=== PATIENT | female | born 1995 | race Caucasian/White ===

== ENCOUNTER 2017-11-11 16:07 | Emergency (ER) | payer OTHER ==
[2017-11-11] MEDS ORDERED: Lidocaine 2% VISCOUS* 15 ML UDC PO ONE (17:20)
[2017-11-11] MEDS ORDERED: Al Hydrox/Mg Hydrox/Simet LIQ* 30 ML UDC PO ONE (17:20)
[2017-11-11] MEDS ORDERED: Famotidine IV* 10 MG/ML 2 ML (20 mg) IV ONE (17:20)
[2017-11-11] MEDS ORDERED: NS 0.9% 1000 ML* 1,000 ML IV ONE (17:20)
[2017-11-11 17:45] LABS: ABS Basophils 0 10^3/ul (0-0.2); ABS Eosinophils 0 10^3/ul (0-0.6); ABS Lymphocytes 1.4 10^3/ul (1.0-4.8); ABS Monocytes 0.5 10^3/ul (0-0.8); ABS Neutrophils 5.5 10^3/ul (1.5-7.7); ABS Nucleated RBC 0 10^3/ul; Eosinophil % 0.6 % (0-6); Hematocrit 36 % (35-47); Hemoglobin 12.6 g/dl (12.0-16.0); Lymphocyte % 18.7 % (25-47); Mean Corpuscular HGB Conc 35 g/dl (31-36); Mean Corpuscular Hemoglobin 30 pg (27-31); Mean Corpuscular Volume 87 fL (80-97); Mean Platelet Volume 7 um3 (7.4-10.4); Nucleated Red Blood Cells % 0.1; Platelet Count 263 10^3/ul (150-450); Red Blood Count 4.15 10^6/ul (4.0-5.4); Red Cell Distribution Width 13 % (10.5-15); White Blood Count 7.4 10^3/ul (3.5-10.8)
[2017-11-11] MEDS ORDERED: Ketorolac INJ* 30 MG/ML 1 ML VIAL IV PUSH ONE (17:55)
[2017-11-11 18:01] LABS: EGFR Non-African American 140.9 (>60)
--- NOTE | 2017-11-11 18:38 | RAD ---
HISTORY: Abdominal pain COMPARISONS: None VIEWS: Frontal supine and upright views of the abdomen. FINDINGS: BOWEL: There is a nonspecific bowel gas pattern, with nondilated small bowel gas noted. There is a large amount of stool within the colon. CALCULI: There are no abnormal calculi. BONES AND SOFT TISSUES: There are no osseous abnormalities. OTHER FINDINGS: The lung bases are clear. There is no subphrenic gas. IMPRESSION: NONSPECIFIC BOWEL GAS PATTERN. LARGE AMOUNT OF STOOL WITHIN THE COLON.
--- NOTE | 2017-11-11 18:41 | RAD ---
HISTORY: Pelvic pain, early COMPARISONS: None TECHNIQUE: Multiple transverse and longitudinal ultrasound images were obtained of the pelvis using grayscale, color Doppler, spectral Doppler imaging and M-Mode Doppler imaging using the endovaginal transducer. FINDINGS: UTERUS: The uterus is normal in shape, size, contour, and echotexture. GESTATION: There is a single live intrauterine gestation. The crown-rump length measures 1.15 cm for a gestational age of 7 weeks, 3 days. The LEONOR is June 27, 2018. cardiac motion is detected at a rate of 139 beats per minute. Gross movement is identified. anatomy cannot be assessed secondary to early dates. The amniotic fluid is qualitatively normal. There is a small hypoechoic fluid collection consistent with a subchorionic hemorrhage along the lower uterine segment measuring 1.4 x 0.5 x 0.9 cm CUL-DE-SAC: There is no free fluid within the cul-de-sac. RIGHT OVARY: The right ovary measures 4.4 x 2.1 x 3.3 cm. Normal arterial and venous waveforms are identifiable within the ovary on spectral Doppler imaging. LEFT OVARY: The left ovary measures 3.6 x 2.6 x 2.5 cm. There is a 1.6 cm simple left ovarian cyst. Normal arterial and venous waveforms are identifiable within the ovary on spectral Doppler imaging. BLADDER: The bladder is not well visualized. IMPRESSION: 1. SINGLE LIVE INTRAUTERINE GESTATION AT 7 WEEKS, 3 DAYS BY CROWN-RUMP LENGTH. 2. SMALL SUBCHORIONIC HEMORRHAGE.
[2017-11-11 18:47] VITALS: BP 115/65
--- NOTE | 2017-11-12 18:40 | ED ---
Philip Contreras Gabriel, scribed for Wally Carney MD on 11/11/17 at 1714 . Abdominal Pain/Female - HPI Summary HPI Summary: This patient is a 21 year old F presenting to [facility] with a chief complaint of suprapubic ABD pain that began the 28 of October. The patient rates the pain 8/10 in severity. Patient reports nausea. Patient denies vomiting, diarrhea, and constipation.. Pt saw Eyal and dx with GERD and the medication but it did not help. LNMP October 14 she is not regular. Pt is sexually active and is not on contraceptives. - History of Current Complaint Chief Complaint: EDAbdPain Stated Complaint: ABD PAIN Time Seen by Provider: 11/11/17 17:08 Hx Obtained From: Patient Onset/Duration: Lasting Weeks, Still Present Timing: Constant Severity Initially: Severe Severity Currently: Severe Pain Intensity: 8 Pain Scale Used: 0-10 Numeric Location: Suprapubic Radiates: No Alleviating Factor(s): Nothing Associated Signs and Symptoms: Positive: Nausea. Negative: Vomiting, Diarrhea Allergies/Adverse Reactions: Allergies Allergy/AdvReac Type Severity Reaction Status Date / Time gluten Allergy Rash Verified 11/11/17 17:22 PMH/Surg Hx/FS Hx/Imm Hx Endocrine/Hematology History: Reports: Other Endocrine/Hematological Disorders - celiacs disease Denies: Hx Anticoagulant Therapy, Hx Blood Disorders, Hx Bone Marrow Disease Cardiovascular History: Denies: Hx Auto Implanted Cardiovert Defib, Hx Cardiac Arrest Respiratory History: Denies: Hx Asthma, Hx Bronchopulmonary Dysplasia GI History: Denies: Hx Cirrhosis, Hx Crohn's Disease Psychiatric History: Denies: Hx Anxiety, Hx Attention Deficit Hyperactivity Disorder Infectious Disease History: No Infectious Disease History: Denies: Traveled Outside the [place] in Last 30 Days - Family History Known Family History: Negative: Respiratory Disease, Seizure Disorder - Social History Occupation: Student Lives: Dormitory/Roommates Alcohol Use: Occasionally Hx Substance Use: No Substance Use Type: Reports: None Hx Tobacco Use: No Smoking Status (MU): Never Smoked Tobacco Review of Systems Negative: Fever Gastrointestinal: Negative - constipation Positive: Abdominal Pain, Nausea. Negative: Vomiting, Diarrhea All Other Systems Reviewed And Are Negative: Yes Physical Exam - Summary Physical Exam Summary: VITAL SIGNS: Reviewed. GENERAL: Patient is a well-developed and nourished female who is lying comfortable in the stretcher. Patient is not in any acute respiratory distress. HEAD AND FACE: Normocephalic and atraumatic. EYES: PERRLA, EOMI x 2, No injected conjunctiva. EARS: Hearing grossly intact. Ear canals and tympanic membranes are WNL. MOUTH: Oropharynx within normal limits. NECK: Supple, trachea is midline, no adenopathy, no JVD. CHEST: Symmetric, no tenderness at palpation LUNGS: Clear to auscultation bilaterally. No wheezing or crackles. CVS: RRR, S1 and S2 present, no murmurs or gallops appreciated. ABDOMEN: Soft, non-tender. No signs of distention. Positive bowel sounds. No rebound no guarding, and no masses palpated. No abdominal bruit or pulsations. EXTREMITIES: FROM in all major joints, no edema, no cyanosis or clubbing. NEURO: Alert and oriented x 3. No acute neurological deficits. Speech is normal. SKIN: Dry and warm Triage Information Reviewed: Yes Vital Signs On Initial Exam: Initial Vitals Temp Pulse Resp BP Pulse Ox 97.9 F 73 16 136/60 100 11/11/17 16:16 11/11/17 16:16 11/11/17 16:16 11/11/17 16:16 11/11/17 16:16 Vital Signs Reviewed: Yes Diagnostics - Vital Signs Vital Signs Temp Pulse Resp BP Pulse Ox 11/11/17 16:16 97.9 F 73 16 136/60 100 - Laboratory Lab Results: Lab Results 11/11/17 11/11/17 11/11/17 Range/Units 17:34 17:34 17:34 WBC 7.4 (3.5-10.8) 10^3/ul RBC 4.15 (4.0-5.4) 10^6/ul Hgb 12.6 (12.0-16.0) g/dl Hct 36 (35-47) % MCV 87 (80-97) fL MCH 30 (27-31) pg MCHC 35 (31-36) g/dl RDW 13 (10.5-15) % Plt Count 263 (150-450) 10^3/ul MPV 7 L (7.4-10.4) um3 Neut % (Auto) 74.1 (38-83) % Lymph % (Auto) 18.7 L (25-47) % [place] % (Auto) 6.1 (0-7) % Eos % (Auto) 0.6 (0-6) % Baso % (Auto) 0.5 (0-2) % Absolute Neuts (auto) 5.5 (1.5-7.7) 10^3/ul Absolute Lymphs (auto) 1.4 (1.0-4.8) 10^3/ul Absolute Monos (auto) 0.5 (0-0.8) 10^3/ul Absolute Eos (auto) 0 (0-0.6) 10^3/ul Absolute Basos (auto) 0 (0-0.2) 10^3/ul Absolute Nucleated RBC 0 10^3/ul Nucleated RBC % 0.1 Sodium 133 (133-145) mmol/L Potassium 3.6 (3.5-5.0) mmol/L Chloride 103 (101-111) mmol/L Carbon Dioxide 24 (22-32) mmol/L Anion Gap 6 (2-11) mmol/L BUN 7 (6-24) mg/dL Creatinine 0.55 (0.51-0.95) mg/dL Est GFR ( Amer) 181.2 (>60) Est GFR (Non-Af Amer) 140.9 (>60) BUN/Creatinine Ratio 12.7 (8-20) Glucose 84 (70-100) mg/dL Lactic Acid (0.5-2.0) mmol/L Calcium 9.4 (8.6-10.3) mg/dL Magnesium 1.8 L (1.9-2.7) mg/dL Total Bilirubin 0.80 (0.2-1.0) mg/dL AST 17 (13-39) U/L ALT 17 (7-52) U/L Alkaline Phosphatase 25 L (34-104) U/L Total Creatine Kinase 56 (10-223) U/L C-Reactive Protein < 1.00 (< 5.00) mg/L B-Natriuretic Peptide 24 ( - 100) pg/mL Total Protein 7.0 (6.4-8.9) g/dL Albumin 4.6 (3.2-5.2) g/dL Globulin 2.4 (2-4) g/dL Albumin/Globulin Ratio 1.9 (1-3) Amylase 42 (29-103) U/L Lipase 25 (11.0-82.0) U/L Beta HCG, Quant Pending 11/11/17 Range/Units 17:34 WBC (3.5-10.8) 10^3/ul RBC (4.0-5.4) 10^6/ul Hgb (12.0-16.0) g/dl Hct (35-47) % MCV (80-97) fL MCH (27-31) pg MCHC (31-36) g/dl RDW (10.5-15) % Plt Count (150-450) 10^3/ul MPV (7.4-10.4) um3 Neut % (Auto) (38-83) % Lymph % (Auto) (25-47) % [place] % (Auto) (0-7) % Eos % (Auto) (0-6) % Baso % (Auto) (0-2) % Absolute Neuts (auto) (1.5-7.7) 10^3/ul Absolute Lymphs (auto) (1.0-4.8) 10^3/ul Absolute Monos (auto) (0-0.8) 10^3/ul Absolute Eos (auto) (0-0.6) 10^3/ul Absolute Basos (auto) (0-0.2) 10^3/ul Absolute Nucleated RBC 10^3/ul Nucleated RBC % Sodium (133-145) mmol/L Potassium (3.5-5.0) mmol/L Chloride (101-111) mmol/L Carbon Dioxide (22-32) mmol/L Anion Gap (2-11) mmol/L BUN (6-24) mg/dL Creatinine (0.51-0.95) mg/dL Est GFR ( Amer) (>60) Est GFR (Non-Af Amer) (>60) BUN/Creatinine Ratio (8-20) Glucose (70-100) mg/dL Lactic Acid 0.5 (0.5-2.0) mmol/L Calcium (8.6-10.3) mg/dL Magnesium (1.9-2.7) mg/dL Total Bilirubin (0.2-1.0) mg/dL AST (13-39) U/L ALT (7-52) U/L Alkaline Phosphatase (34-104) U/L Total Creatine Kinase (10-223) U/L C-Reactive Protein (< 5.00) mg/L B-Natriuretic Peptide ( - 100) pg/mL Total Protein (6.4-8.9) g/dL Albumin (3.2-5.2) g/dL Globulin (2-4) g/dL Albumin/Globulin Ratio (1-3) Amylase (29-103) U/L Lipase (11.0-82.0) U/L Beta HCG, Quant Result Diagrams: 11/11/17 17:34 11/11/17 17:34 Lab Statement: Any lab studies that have been ordered have been reviewed, and results considered in the medical decision making process. - Radiology ABD xray Radiology Interpretation Completed By: Radiologist - NONSPECIFIC BOWEL GAS PATTERN. LARGE AMOUNT OF STOOL WITHIN THE COLON ED physician has reviewed this radiology report. - EKG 17:32 Cardiac Rate: NL EKG Rhythm: Sinus Rhythm - at 62 BPM EKG Interpretation: no ST elevations. Normal axis. - Additional Comments Diagnostic Additional Comments: US reveals, per radiologist, 1. SINGLE LIVE INTRAUTERINE GESTATION AT 7 WEEKS, 3 DAYS BY CROWN-RUMP LENGTH. 2. SMALL SUBCHORIONIC HEMORRHAGE. ED physician has reviewed this radiology report. Abdominal Pain Fem Course/Dx - Course Course Of Treatment: In the ED course an IV access was obtained. Patient was placed in a night monitor. Patient was started with IV fluids. She was given pepcid and GI cocktail for the epigastric pain and Toradol for lower abdominal pain. Labs w/o a significant abnormality. Pelvic U/S showed the patient is 7 weeks . Patient reports she wants to terminate the thus she will be discharged home [facility]. She is hemodynamically stable and alert and oriented x3. - Diagnoses Provider Diagnoses: Discharge - Discharge Plan Condition: Stable Disposition: HOME Patient Education Materials: (ED) [facility], [Z.CONVERSION PROVIDER TYPE] - If Needed Additional Instructions: RETURN TO EMERGENCY DEPARTMENT FOR ANY NEW OR WORSENING SYMPTOMS The documentation as recorded by the Philip salgado Gabriel accurately reflects the service I personally performed and the decisions made by , Wally Carney MD.
== END 2017-11-11 18:46 | disposition home or self-care (01) ==
LOC: ED 16:07
DX: O26.891 Other specified pregnancy related conditions, first trimester (principal); R10.30 Lower abdominal pain, unspecified; Z3A.01 Less than 8 weeks gestation of pregnancy
CPT/HCPCS: 36415; 74019; 76801; 80053; 82150; 82550; 83605; 83690; 83735; 83880; 84702; 85025; 86140; 87040; 93005; 96374; 96375; 99282; A9270-GY

== ENCOUNTER 2018-02-19 20:45 | Emergency (ER) | payer OTHER ==
--- NOTE | 2018-02-19 21:42 | RAD ---
Indication: Persistent headache at forehead and around the eyes. Comparison: No relevant prior exams available on the [facility] PACS for comparison. Technique: Noncontrast CT paranasal sinuses with multiplanar reformation. Report: Clear paranasal sinuses. Patent infundibula of the anterior ostiomeatal units. Clear nasal cavity. Normal variant pneumatization of the LEFT middle nasal turbinate. Negative for significant septal deviation. Unremarkable nasopharyngeal mucosal space contours. Unremarkable orbital contents. IMPRESSION: Negative for paranasal sinus disease.
[2018-02-19] MEDS ORDERED: diPHENhydraMINE IV* 50 MG/ML 1 ml VIAL (BENADRYL) IV ONE (22:01)
[2018-02-19] MEDS ORDERED: Metoclopramide IV* 5 MG/ML 2 ML VIAL IV SLOW PU ONE (22:01)
[2018-02-19] MEDS ORDERED: NS 0.9% 1000 ML* 1,000 ML IV ONE (22:02)
[2018-02-19] MEDS ORDERED: Ketorolac INJ* 30 MG/ML 1 ML VIAL IV PUSH ONE (22:02)
[2018-02-19 22:34] LABS: ABS Basophils 0 10^3/ul (0-0.2); ABS Eosinophils 0 10^3/ul (0-0.6); ABS Lymphocytes 1.2 10^3/ul (1.0-4.8); ABS Nucleated RBC 0 10^3/ul; Eosinophil % 0 % (0-6); Hematocrit 39 % (35-47); Hemoglobin 13.2 g/dl (12.0-16.0); Lymphocyte % 10.9 % (25-47); Mean Corpuscular HGB Conc 34 g/dl (31-36); Mean Corpuscular Hemoglobin 30 pg (27-31); Mean Corpuscular Volume 88 fL (80-97); Mean Platelet Volume 7.2 um3 (7.4-10.4); Nucleated Red Blood Cells % 0.2; Platelet Count 253 10^3/ul (150-450); Red Blood Count 4.38 10^6/ul (4.00-5.40); Red Cell Distribution Width 13 % (10.5-15); White Blood Count 11.3 10^3/ul (3.5-10.8)
[2018-02-19 22:57] LABS: EGFR Non-African American 113.1 (>60)
[2018-02-19] MEDS ORDERED: Morphine VIAL* 4 MG/ML VIAL (1 ml vial) IV ONE (23:27)
--- NOTE | 2018-02-19 23:27 | ED ---
Headache - HPI Summary HPI Summary: 22-year-old female presents to headache for past 4 days. She denies any history of headache. She states the headache is in the front of her head. States it feels like it is in her sinus and behind her eyes. She denies any pain with eye movement. No swelling to her eyes. No recent dental infection. No sinus congestion. States she was seen in urgent care couple days ago and was told it was allergies and to take Zyrtec twice a day. She has been doing and it has not been helping. States she's had a toradol shot 2 days ago and had Toradol shot today at [facility]. She denies a sore throat. No ear pain. No family history of migraines or personal history of migraines. No dizziness. She admits to photophobia. No neck stiffness. No fevers. No nausea vomiting. No chest pain shortness breath. Never had this before. - History Of Current Complaint Chief Complaint: EDHeadache Stated Complaint: HEADACHE Time Seen by Provider: 02/19/18 21:48 - Allergies/Home Medications Allergies/Adverse Reactions: Allergies Allergy/AdvReac Type Severity Reaction Status Date / Time cefuroxime [From Ceftin] Allergy Difficulty Verified 02/19/18 20:51 Breathing gluten Allergy Rash Verified 11/11/17 17:22 Home Medications: Home Medications Cetirizine* [ZyrTEC 10 MG TAB*] 20 mg PO DAILY 02/19/18 [History Confirmed 02/19] Dextroamphetamine/Amphetamine [Adderall 5 mg] 1 tab PO DAILY PRN 02/19/18 [ History Confirmed 02/19/18] Dextroamphetamine/Amphetamine [Adderall Xr 15 mg Capsule] 15 mg PO DAILY [History Confirmed 02/19/18] Metaxalone [Metaxalone] 800 mg PO TID 02/19/18 [History Confirmed 02/19/18] predniSONE TAB* [Deltasone 20 MG TAB*] 20 mg PO DAILY 02/19/18 [History Confirmed 02/19/18] PMH/Surg Hx/FS Hx/Imm Hx Endocrine/Hematology History: Reports: Other Endocrine/Hematological Disorders - celiacs disease Denies: Hx Anticoagulant Therapy, Hx Blood Disorders, Hx Bone Marrow Disease Cardiovascular History: Denies: Hx Auto Implanted Cardiovert Defib, Hx Cardiac Arrest Respiratory History: Denies: Hx Asthma, Hx Bronchopulmonary Dysplasia GI History: Denies: Hx Cirrhosis, Hx Crohn's Disease Psychiatric History: Denies: Hx Anxiety, Hx Attention Deficit Hyperactivity Disorder Infectious Disease History: No Infectious Disease History: Denies: Traveled Outside the [place] in Last 30 Days - Family History Known Family History: Negative: Respiratory Disease, Seizure Disorder - Social History Alcohol Use: Occasionally Hx Substance Use: No Substance Use Type: Reports: None Hx Tobacco Use: No Smoking Status (MU): Never Smoked Tobacco Review of Systems Negative: Fever Positive: Photophobia Negative: Chest Pain Negative: Shortness Of Breath Positive: Headache All Other Systems Reviewed And Are Negative: Yes Physical Exam Triage Information Reviewed: Yes Vital Signs On Initial Exam: Initial Vitals Temp Pulse Resp BP Pulse Ox 97.9 F 65 17 129/72 99 02/19/18 20:46 02/19/18 20:46 02/19/18 20:46 02/19/18 20:46 02/19/18 20:46 Vital Signs Reviewed: Yes Appearance: Positive: Well-Appearing Skin: Positive: Warm, Dry Head/Face: Positive: Normal Head/Face Inspection Eyes: Positive: Normal, EOMI, AKIN, Conjunctiva Clear ENT: Positive: Normal ENT inspection, Pharynx normal, TMs normal Neck: Positive: Supple, Nontender, No Lymphadenopathy. Negative: Nuchal Rigidity Respiratory/Lung Sounds: Positive: Clear to Auscultation, Breath Sounds Present Cardiovascular: Positive: Normal, RRR Abdomen Description: Positive: Nontender, Soft Bowel Sounds: Positive: Present Musculoskeletal: Positive: Normal Neurological: Positive: Sensory/Motor Intact, Alert, Oriented to Person Place, Time, CN Intact II-III Psychiatric: Positive: Normal Diagnostics - Vital Signs Vital Signs Temp Pulse Resp BP Pulse Ox 02/19/18 20:46 97.9 F 65 17 129/72 99 - Laboratory Lab Results: Lab Results 02/19/18 02/19/18 Range/Units 22:28 22:28 WBC 11.3 H (3.5-10.8) 10^3/ul RBC 4.38 (4.00-5.40) 10^6/ul Hgb 13.2 (12.0-16.0) g/dl Hct 39 (35-47) % MCV 88 (80-97) fL MCH 30 (27-31) pg MCHC 34 (31-36) g/dl RDW 13 (10.5-15) % Plt Count 253 (150-450) 10^3/ul MPV 7.2 L (7.4-10.4) um3 Neut % (Auto) 80.1 (38-83) % Lymph % (Auto) 10.9 L (25-47) % [place] % (Auto) 8.9 H (0-7) % Eos % (Auto) 0 (0-6) % Baso % (Auto) 0.1 (0-2) % Absolute Neuts (auto) 9.0 H (1.5-7.7) 10^3/ul Absolute Lymphs (auto) 1.2 (1.0-4.8) 10^3/ul Absolute Monos (auto) 1.0 H (0-0.8) 10^3/ul Absolute Eos (auto) 0 (0-0.6) 10^3/ul Absolute Basos (auto) 0 (0-0.2) 10^3/ul Absolute Nucleated RBC 0 10^3/ul Nucleated RBC % 0.2 Sodium 138 (135-145) mmol/L Potassium 4.0 (3.5-5.0) mmol/L Chloride 104 (101-111) mmol/L Carbon Dioxide 26 (22-32) mmol/L Anion Gap 8 (2-11) mmol/L BUN 11 (6-24) mg/dL Creatinine 0.66 (0.51-0.95) mg/dL Est GFR ( Amer) 145.4 (>60) Est GFR (Non-Af Amer) 113.1 (>60) BUN/Creatinine Ratio 16.7 (8-20) Glucose 106 H (70-100) mg/dL Calcium 9.9 (8.6-10.3) mg/dL Total Bilirubin 0.60 (0.2-1.0) mg/dL AST 24 (13-39) U/L ALT 27 (7-52) U/L Alkaline Phosphatase 36 (34-104) U/L Total Protein 7.3 (6.4-8.9) g/dL Albumin 4.3 (3.2-5.2) g/dL Globulin 3.0 (2-4) g/dL Albumin/Globulin Ratio 1.4 (1-3) Beta HCG, Quant < 0.60 mIU/mL Result Diagrams: 02/19/18 22:28 02/19/18 22:28 Lab Statement: Any lab studies that have been ordered have been reviewed, and results considered in the medical decision making process. - CT sinus CT Interpretation: No Acute Changes CT Interpretation Completed By: Radiologist Re-Evaluation - Re-Evaluation First Eval Re-Evaluation Time: 23:27 Change: Improved Comment: pain is now 5-6 Second Eval Re-Evaluation Time: 00:16 Change: Improved Comment: headache is 2/10 Headache Course/Dx - Course Course Of Treatment: 22-year-old female presents to headache for past 4 days. She denies any history of headache. She states the headache is in the front of her head. States it feels like it is in her sinus and behind her eyes. She denies any pain with eye movement. No swelling to her eyes. No recent dental infection. No sinus congestion. States she was seen in urgent care couple days ago and was told it was allergies and to take Zyrtec twice a day. She has been doing and it has not been helping. States she's had a toradol shot 2 days ago and had Toradol shot today at [facility]. She denies a sore throat. No ear pain. No family history of migraines or personal history of migraines. No dizziness. She admits to photophobia. No neck stiffness. No fevers. No nausea vomiting. No chest pain shortness breath. Never had this before. On exam has some on exam normal neuro exam. Nontender sinuses. No sinus congestion noted. CT sinuses normal. Labs wbc a little elevated. Gave Toradol Benadryl and Reglan feeling better. gave some morphine as headache not completely resolved and feeling better. will have follow up with primary or neurology. patient understand and agrees with plan. - Diagnoses Differential Diagnosis/HQI/PQRI: Migraine, Tension Headache, Viral Syndrome Provider Diagnoses: Headache Discharge - Sign-Out/Discharge Documenting (check all that apply): Discharge/Admit/Transfer - Discharge Plan Condition: Good Disposition: HOME Patient Education Materials: Acute Headache (ED) Referrals: Rocio Eugene MD [Medical Doctor] - Collette Rivera MD [Primary Care Provider] - Additional Instructions: Take Tylenol or ibuprofen for pain every 6 hours Follow up with neurology Return to ED if develop fever, neck stiffness, or any new or worsening symptoms - Billing Disposition and Condition Condition: GOOD Disposition: Home
[2018-02-20 00:38] VITALS: BP 123/68
== END 2018-02-20 00:37 | disposition home or self-care (01) ==
LOC: ED 20:45
DX: R51 Headache (principal); Z91.018 Allergy to other foods; H53.149 Visual discomfort, unspecified
CPT/HCPCS: 36415; 70486; 80053; 84702; 85025; 96374; 96375; 99282; J1200; J1885; J2270; J2765

== ENCOUNTER 2018-02-20 09:42 | Emergency (ER) | payer OTHER ==
[2018-02-20] MEDS ORDERED: HYDROmorphone INJ* 2 MG/ML CARPUJECT SYRINGE IV SLOW PU ONE (10:13)
[2018-02-20] MEDS ORDERED: NS 0.9% 1000 ML* 1,000 ML IV ONE (10:13)
[2018-02-20] MEDS ORDERED: PROCHLORPERAZINE INJ 5 MG/ML 2 ML VIAL IV PRN (10:13)
[2018-02-20 10:39] LABS: ABS Basophils 0 10^3/ul (0-0.2); ABS Eosinophils 0 10^3/ul (0-0.6); ABS Lymphocytes 0.5 10^3/ul (1.0-4.8); ABS Monocytes 0.6 10^3/ul (0-0.8); ABS Neutrophils 7.3 10^3/ul (1.5-7.7); ABS Nucleated RBC 0 10^3/ul; Eosinophil % 0.1 % (0-6); Hematocrit 33 % (35-47); Hemoglobin 11.5 g/dl (12.0-16.0); Lymphocyte % 6.2 % (25-47); Mean Corpuscular HGB Conc 35 g/dl (31-36); Mean Corpuscular Hemoglobin 31 pg (27-31); Mean Corpuscular Volume 88 fL (80-97); Mean Platelet Volume 7.1 um3 (7.4-10.4); Nucleated Red Blood Cells % 0; Platelet Count 209 10^3/ul (150-450); Red Blood Count 3.75 10^6/ul (4.00-5.40); Red Cell Distribution Width 13 % (10.5-15); White Blood Count 8.4 10^3/ul (3.5-10.8)
[2018-02-20] MEDS ORDERED: Lidocaine 2% EPI 1:200000 MPF*10-20 ML VIAL ONE (11:40)
[2018-02-20] MEDS ORDERED: Lidocaine 1%* 5 ML VIAL ONE (11:40)
[2018-02-20] MEDS ORDERED: LORazepam INJ* 2 MG/ML 1 ML VIAL IV ONE (14:52)
[2018-02-20] MEDS ORDERED: Ketorolac INJ* 30 MG/ML 1 ML VIAL IV PUSH ONE (15:48)
[2018-02-20 17:48] VITALS: BP 133/69
--- NOTE | 2018-02-20 18:47 | ED ---
Harsha Contreras Angela, scribed for Rafa Neely MD on 02/20/18 at 1004 . Headache - HPI Summary HPI Summary: This pt is a 22 y/o female presenting to [facility] c/o headache x5 days. Pt reports her headache began 5 days ago on the right temporal area. She states she took 4 ibuprofens that day and woke up a couple of hours feeling better. She notes that 3 days ago her headache was worse, on bilateral temporal areas, and went to Urgent Care where she was given Toradol and prednisone. Pt was also seen in the ED last night and was treated for migraines with morphine. She states she had some relief but when she got home she was in a lot of pain. Pt also had a sinus CT last night that resulted negative. Pt went to [facility] today and was advised to come to the ED for an MRI. Her headache is located at the bilateral temporal areas and behind her eyes. She states her headache is worse with sitting up from lying position or bending down. Currently she rates her headache 10/10 in severity. Additionally, pt notes fever, neck pain with neck flexion, neck stiffness, and low back pain (began 4 days ago). Denies runny nose , nasal congestion, fullness under eyes, sore throat, ear ache. No PMHx of migraines. - History Of Current Complaint Chief Complaint: EDHeadache Stated Complaint: HEAD PAIN/FEVER Time Seen by Provider: 02/20/18 09:59 Hx Obtained From: Patient Onset/Duration: Started days ago, Still Present Currently Pain Is: Current Pain Scale(0-10)= - 10, Severe Timing: Days Character: Pressure Location of Headache: Temporal - bilateral Aggravating Factor: Position Change Allevating Factors: Nothing Associated Signs And Symptoms: Fever, Neck Pain, Neck Stiffness, Other (Noted In Comments) - POS: low back pain. NEG: runny nose, nasal congestion, sore throat, ear ache. - Allergies/Home Medications Allergies/Adverse Reactions: Allergies Allergy/AdvReac Type Severity Reaction Status Date / Time cefuroxime [From Ceftin] Allergy Difficulty Verified 02/20/18 09:43 Breathing gluten Allergy Rash Verified 02/20/18 09:43 Home Medications: Home Medications Amphetamine MIXED SALTS TAB* [Adderall TAB*] 5 mg PO DAILY PRN 02/20/18 [ History Confirmed 02/20/18] Amphetamine/Dextroamph ER(NF) [Adderal XR (NF)] 15 mg PO DAILY 02/20/18 [ History Confirmed 02/20/18] Metaxalone TAB* [Skelaxin TAB*] 800 mg PO TID 02/20/18 [History Confirmed ] PMH/Surg Hx/FS Hx/Imm Hx Endocrine/Hematology History: Reports: Other Endocrine/Hematological Disorders - celiacs disease Denies: Hx Anticoagulant Therapy, Hx Blood Disorders, Hx Bone Marrow Disease Cardiovascular History: Denies: Hx Auto Implanted Cardiovert Defib, Hx Cardiac Arrest Respiratory History: Denies: Hx Asthma, Hx Bronchopulmonary Dysplasia GI History: Denies: Hx Cirrhosis, Hx Crohn's Disease Neurological History: Denies: Hx Migraine Psychiatric History: Denies: Hx Anxiety, Hx Attention Deficit Hyperactivity Disorder Infectious Disease History: No Infectious Disease History: Denies: Traveled Outside the [place] in Last 30 Days - Family History Known Family History: Negative: Respiratory Disease, Seizure Disorder Family History: No FHx of migraines. - Social History Alcohol Use: Occasionally Hx Substance Use: No Substance Use Type: Reports: None Hx Tobacco Use: No Smoking Status (MU): Never Smoked Tobacco Review of Systems Positive: Fever Negative: Sore Throat, Ear Ache, Nasal Discharge Musculoskeletal: Other - neck pain, neck stiffness, lower back pain Positive: Headache All Other Systems Reviewed And Are Negative: Yes Physical Exam - Summary Physical Exam Summary: Appearance: The patient is well-nourished in no acute distress. Skin: The skin is warm and dry and skin color reflects adequate perfusion. HEENT: The head is normocephalic and atraumatic. The pupils are equal and reactive. The conjunctivae are clear and without drainage. Nares are patent and without drainage. Mouth reveals moist mucous membranes and the throat is without erythema and exudate. The external ears are intact. The ear canals are patent and without drainage. The tympanic membranes are intact. Neck: the neck is supple with full range of motion and full flexion. Tenderness with flexion of neck. There are no carotid bruits. There is no neck vein distension. She does not have any meningeal signs. Respiratory: Chest is non-tender. Lungs are clear to auscultation and breath sounds are symmetrical and equal. Cardiovascular: Heart is regular rate and rhythm. There is no murmur or rub auscultated. There is no peripheral edema and pulses are symmetrical and equal. Abdomen: The abdomen is soft and non-tender. There are normal bowel sounds heard in all four quadrants and there is no organomegaly palpated. Musculoskeletal: There is no back tenderness noted. Extremities are non-tender with full range of motion. There is good capillary refill. There is no peripheral edema or calf tenderness elicited. Neurological: Patient is alert and oriented to person, place and time. The patient has symmetrical motor strength in all four extremities. Cranial nerves are grossly intact. Deep tendon reflexes are symmetrical and equal in all four extremities. Psychiatric: The patient has an appropriate affect and does not exhibit any anxiety or depression. Triage Information Reviewed: Yes Vital Signs On Initial Exam: Initial Vitals Temp Pulse Resp BP Pulse Ox 100.6 F 87 18 126/69 99 02/20/18 09:43 02/20/18 09:43 02/20/18 09:43 02/20/18 09:43 02/20/18 09:43 Vital Signs Reviewed: Yes Procedures - Lumbar Puncture 11:49 Position: Sitting Aseptic Technique: Lidocaine Anesthesia Used: 2.0% Lido Spinal Needle Used: 22 Gauge Lumbar Puncture Note: Consent for LP procedure was obtained and signed by the pt. CSF opening pressure is 34 cm of H2O. First pass, 4 CC of clear CSF obtained. Pt tolerated the procedure well. Diagnostics - Vital Signs Vital Signs Temp Pulse Resp BP Pulse Ox 02/20/18 09:43 100.6 F 87 18 126/69 99 - Laboratory Lab Results: Lab Results 02/20/18 02/20/18 02/20/18 Range/Units 10:25 10:25 10:25 WBC 8.4 (3.5-10.8) 10^3/ul RBC 3.75 L (4.00-5.40) 10^6/ul Hgb 11.5 L (12.0-16.0) g/dl Hct 33 L (35-47) % MCV 88 (80-97) fL MCH 31 (27-31) pg MCHC 35 (31-36) g/dl RDW 13 (10.5-15) % Plt Count 209 (150-450) 10^3/ul MPV 7.1 L (7.4-10.4) um3 Neut % (Auto) 86.9 H (38-83) % Lymph % (Auto) 6.2 L (25-47) % [place] % (Auto) 6.6 (0-7) % Eos % (Auto) 0.1 (0-6) % Baso % (Auto) 0.2 (0-2) % Absolute Neuts (auto) 7.3 (1.5-7.7) 10^3/ul Absolute Lymphs (auto) 0.5 L (1.0-4.8) 10^3/ul Absolute Monos (auto) 0.6 (0-0.8) 10^3/ul Absolute Eos (auto) 0 (0-0.6) 10^3/ul Absolute Basos (auto) 0 (0-0.2) 10^3/ul Absolute Nucleated RBC 0 10^3/ul Nucleated RBC % 0 C-Reactive Protein 56.86 H (<8.01) mg/L Fluid Source Fluid Volume mL Fluid Color Fluid Appearance Fluid WBC /mcL Fluid RBC /mcL Fluid Tot Cell Count Fluid Neutrophils % Fluid Lymphocytes % Fluid Monocytes % Fluid Cell Count Rvw By CSF Cell Count Tube # CSF Glucose (40-70) mg/dL CSF Total Protein (15-45) mg/dL HIV 1&2 Antibody Nonreactive (Nonreactive) 02/20/18 02/20/18 Range/Units 12:00 12:00 WBC (3.5-10.8) 10^3/ul RBC (4.00-5.40) 10^6/ul Hgb (12.0-16.0) g/dl Hct (35-47) % MCV (80-97) fL MCH (27-31) pg MCHC (31-36) g/dl RDW (10.5-15) % Plt Count (150-450) 10^3/ul MPV (7.4-10.4) um3 Neut % (Auto) (38-83) % Lymph % (Auto) (25-47) % [place] % (Auto) (0-7) % Eos % (Auto) (0-6) % Baso % (Auto) (0-2) % Absolute Neuts (auto) (1.5-7.7) 10^3/ul Absolute Lymphs (auto) (1.0-4.8) 10^3/ul Absolute Monos (auto) (0-0.8) 10^3/ul Absolute Eos (auto) (0-0.6) 10^3/ul Absolute Basos (auto) (0-0.2) 10^3/ul Absolute Nucleated RBC 10^3/ul Nucleated RBC % C-Reactive Protein (<8.01) mg/L Fluid Source Cerebral spinal Fluid Volume 1.5 mL Fluid Color Colorless Fluid Appearance Clear Fluid WBC 6 /mcL Fluid RBC 1 /mcL Fluid Tot Cell Count 100 Fluid Neutrophils 81 % Fluid Lymphocytes 13 % Fluid Monocytes 6 % Fluid Cell Count Rvw By CSF Cell Count Tube # 4 CSF Glucose 60 (40-70) mg/dL CSF Total Protein 30 (15-45) mg/dL HIV 1&2 Antibody (Nonreactive) Result Diagrams: 02/20/18 10:25 Lab Statement: Any lab studies that have been ordered have been reviewed, and results considered in the medical decision making process. Re-Evaluation - Re-Evaluation First Eval Re-Evaluation Time: 11:25 Comment: Obtained consent from pt to perform lumbar puncture. Second Eval Re-Evaluation Time: 11:49 Comment: Lumbar puncture procedure started. Third Eval Re-Evaluation Time: 12:03 Comment: Lumbar puncture completed, obtained 4 CC of clear CSF. Headache Course/Dx - Course Course Of Treatment: Ms. Quinones presented with 5 days of a headache and a fever. She has seen I believe at least 4 physicians in the last 5 days. This is the first time she's had a fever. Her neck felt stiff to her and tight but she was able to flex fully. She did have paracervical tenderness but no meningeal sign; Kernig's and Brudzinski's signs were negative. She had a mild leukocytosis yesterday indecision was made to perform a lumbar puncture. She agreed to the procedure after explaining the risks and benefits and signed the consent form. The procedure was easy to perform and the results returned with a normal protein, a normal glucose, 6 white blood cells and 1 red blood cell. She had gotten some relief with a shot of Dilaudid prior to the procedure but was still complaining of significant headache. She was then given a dose of Ativan as a muscle relaxer with the assumption that she has a viral infection complicated by a muscle tension headache. A viral meningitis is still in the differential although much less likely. She got significant relief with this and I will discharge her with symptomatic treatment and follow up with [facility]. - Diagnoses Provider Diagnoses: Viral syndrome, Tension headache - Physician Notifications Discussed Care Of Patient With: Rocio Eugene Time Discussed With Above Provider: 14:39 Instructed by Provider To: Other - I discussed pt care with Dr. Eugene, neurologist. Discharge - Sign-Out/Discharge Documenting (check all that apply): Discharge/Admit/Transfer - Discharge - Discharge Plan Condition: Stable Disposition: HOME Patient Education Materials: Tension Headache (ED), Viral Syndrome (ED) Referrals: [facility] [Outside] Additional Instructions: Recommend to take ibuprofen for the pain. Please follow up with your primary care provider in 2-3 days. RETURN TO THE ED FOR ANY WORSENING SYMPTOMS. - Billing Disposition and Condition Condition: STABLE Disposition: Home The documentation as recorded by the Harsha salgado Angela accurately reflects the service I personally performed and the decisions made by me, Rafa Neely MD.
== END 2018-02-20 17:46 | disposition home or self-care (01) ==
LOC: ED 09:42
DX: B34.9 Viral infection, unspecified (principal); G44.209 Tension-type headache, unspecified, not intractable; R51 Headache; R50.9 Fever, unspecified; M54.2 Cervicalgia
CPT/HCPCS: 36415; 62270; 82945; 84157; 85025; 86140; 86703; 87040; 87070; 87205; 89051; 96374; 96375; 99284; J0780; J1170; J1885; J2060

== ENCOUNTER 2018-02-22 13:10 | Inpatient (IN) | payer OTHER ==
[2018-02-22] MEDS ORDERED: NS 0.9% 1000 ML* 1,000 ML IV ONE (14:25)
[2018-02-22] MEDS ORDERED: diPHENhydraMINE IV* 50 MG/ML 1 ml VIAL (BENADRYL) IV ONE (14:28)
[2018-02-22] MEDS ORDERED: PROCHLORPERAZINE INJ 5 MG/ML 2 ML VIAL IV ONE (14:28)
[2018-02-22] MEDS ORDERED: Ketorolac INJ* 30 MG/ML 1 ML VIAL IV PUSH ONE (14:28)
[2018-02-22] MEDS ORDERED: methylPREDNISolone SOD 40 MG* 1 ML VIAL IV ONE (15:00)
[2018-02-22] MEDS ORDERED: Magnesium Sulfate 2 GM IV* 2 GM/50 ML BAG IVPB ONE (15:00)
[2018-02-22 15:10] LABS: ABS Basophils 0 10^3/ul (0-0.2); ABS Eosinophils 0.1 10^3/ul (0-0.6); ABS Lymphocytes 1.6 10^3/ul (1.0-4.8); ABS Monocytes 0.6 10^3/ul (0-0.8); ABS Neutrophils 4.1 10^3/ul (1.5-7.7); ABS Nucleated RBC 0 10^3/ul; Eosinophil % 2.1 % (0-6); Hematocrit 35 % (35-47); Hemoglobin 11.9 g/dl (12.0-16.0); Lymphocyte % 25.4 % (25-47); Mean Corpuscular HGB Conc 35 g/dl (31-36); Mean Corpuscular Hemoglobin 30 pg (27-31); Mean Corpuscular Volume 88 fL (80-97); Mean Platelet Volume 7.1 um3 (7.4-10.4); Nucleated Red Blood Cells % 0; Platelet Count 256 10^3/ul (150-450); Red Blood Count 3.93 10^6/ul (4.00-5.40); Red Cell Distribution Width 13 % (10.5-15); White Blood Count 6.4 10^3/ul (3.5-10.8)
[2018-02-22 15:34] LABS: EGFR Non-African American 123.8 (>60)
[2018-02-22] MEDS ORDERED: methylPREDNISolone SOD SUCC* 500 MG in NS 0.9% 100 ML* 100 ML IVPB ONE (16:30)
--- NOTE | 2018-02-22 18:02 | ED ---
Headache - HPI Summary HPI Summary: Patient is a 22-year-old female who presents emergency department for ongoing headache times roughly one week. Patient has been seen twice at [facility] and this is her third visit to the emergency department for this headache. Patient has received numerous medications and blood work throughout her visit. When patient was here 2 days ago she had a low-grade fever and had a lumbar puncture done at that time which was relatively unremarkable. Patient states when she was discharged 2 days ago her headache was improved but started again today and was worse. Headache does not increase with sitting or standing. She also states that today she had nausea and vomiting which is new for her. Today patient denies fever, chills, sore throat, sinus congestion, cough, abd. pain, diarrhea, urinary symptoms, numbness, tingling, weakness, vision changes. Patient states pain is located in between her eyes and her posterior head extending to neck. She has no past medical history. Symptoms are moderate in severity. Pain is exacerbated by lights and noise. - History Of Current Complaint Chief Complaint: EDHeadache Stated Complaint: HEADACHE/NAUSEA/STIFF NECK Time Seen by Provider: 02/22/18 14:03 Hx Obtained From: Patient - Allergies/Home Medications Allergies/Adverse Reactions: Allergies Allergy/AdvReac Type Severity Reaction Status Date / Time cefuroxime [From Ceftin] Allergy Difficulty Verified 02/20/18 09:43 Breathing gluten Allergy Rash Verified 02/20/18 09:43 PMH/Surg Hx/FS Hx/Imm Hx Previously Healthy: Yes Endocrine/Hematology History: Reports: Other Endocrine/Hematological Disorders - celiacs disease Denies: Hx Anticoagulant Therapy, Hx Blood Disorders, Hx Bone Marrow Disease Cardiovascular History: Denies: Hx Auto Implanted Cardiovert Defib, Hx Cardiac Arrest Respiratory History: Denies: Hx Asthma, Hx Bronchopulmonary Dysplasia GI History: Denies: Hx Cirrhosis, Hx Crohn's Disease Neurological History: Denies: Hx Migraine Psychiatric History: Denies: Hx Anxiety, Hx Attention Deficit Hyperactivity Disorder Infectious Disease History: No Infectious Disease History: Denies: Traveled Outside the [place] in Last 30 Days - Family History Known Family History: Negative: Respiratory Disease, Seizure Disorder Family History: No FHx of migraines. - Social History Occupation: Student Lives: Alone Alcohol Use: Occasionally Hx Substance Use: No Substance Use Type: Reports: None Hx Tobacco Use: No Smoking Status (MU): Never Smoked Tobacco Review of Systems Constitutional: Negative Negative: Fever, Chills Eyes: Negative ENT: Negative Cardiovascular: Negative Respiratory: Negative Positive: Vomiting, Nausea. Negative: Abdominal Pain, Diarrhea Genitourinary: Negative Musculoskeletal: Negative Skin: Negative Positive: Headache. Negative: Weakness, Paresthesia, Numbness, Syncope All Other Systems Reviewed And Are Negative: Yes Physical Exam Triage Information Reviewed: Yes Vital Signs On Initial Exam: Initial Vitals Temp Pulse Resp BP Pulse Ox 97.6 F 70 16 123/88 98 02/22/18 13:12 02/22/18 13:12 02/22/18 13:12 02/22/18 13:12 02/22/18 13:12 Vital Signs Reviewed: Yes Appearance: Positive: Pain Distress - Pt. lying in bed, eyes closed. Appears uncomfortable but nontoxic. Skin: Positive: Warm, Dry Head/Face: Positive: Normal Head/Face Inspection Eyes: Positive: Normal ENT: Positive: Pharynx normal, TMs normal Neck: Positive: Supple, Nontender, No Lymphadenopathy, Other: - Mild pain in palpation over the right lateral neck. No midline tenderness. No no current rigidity. Respiratory/Lung Sounds: Positive: Clear to Auscultation, Breath Sounds Present Cardiovascular: Positive: Normal, RRR Abdomen Description: Positive: Nontender, No Organomegaly Musculoskeletal: Positive: Normal Neurological: Positive: Normal, CN Intact II-III, Normal Gait, Facial Symmetry, Speech Normal. Negative: Disoriented, Slurred Speech, Ataxic Gait Psychiatric: Positive: Affect/Mood Appropriate Diagnostics - Vital Signs Vital Signs Temp Pulse Resp BP Pulse Ox 02/22/18 17:00 61 99 02/22/18 16:43 71 128/61 98 02/22/18 16:13 90 121/69 98 02/22/18 16:00 59 99 02/22/18 15:43 66 124/76 99 02/22/18 15:13 61 125/70 99 02/22/18 13:12 97.6 F 70 16 123/88 98 - Laboratory Lab Results: Lab Results 02/22/18 02/22/18 Range/Units 14:59 14:59 WBC 6.4 (3.5-10.8) 10^3/ul RBC 3.93 L (4.00-5.40) 10^6/ul Hgb 11.9 L (12.0-16.0) g/dl Hct 35 (35-47) % MCV 88 (80-97) fL MCH 30 (27-31) pg MCHC 35 (31-36) g/dl RDW 13 (10.5-15) % Plt Count 256 (150-450) 10^3/ul MPV 7.1 L (7.4-10.4) um3 Neut % (Auto) 63.1 (38-83) % Lymph % (Auto) 25.4 (25-47) % [place] % (Auto) 9.0 H (0-7) % Eos % (Auto) 2.1 (0-6) % Baso % (Auto) 0.4 (0-2) % Absolute Neuts (auto) 4.1 (1.5-7.7) 10^3/ul Absolute Lymphs (auto) 1.6 (1.0-4.8) 10^3/ul Absolute Monos (auto) 0.6 (0-0.8) 10^3/ul Absolute Eos (auto) 0.1 (0-0.6) 10^3/ul Absolute Basos (auto) 0 (0-0.2) 10^3/ul Absolute Nucleated RBC 0 10^3/ul Nucleated RBC % 0 Sodium 139 (135-145) mmol/L Potassium 4.0 (3.5-5.0) mmol/L Chloride 103 (101-111) mmol/L Carbon Dioxide 27 (22-32) mmol/L Anion Gap 9 (2-11) mmol/L BUN 6 (6-24) mg/dL Creatinine 0.61 (0.51-0.95) mg/dL Est GFR ( Amer) 149.8 (>60) Est GFR (Non-Af Amer) 123.8 (>60) BUN/Creatinine Ratio 9.8 (8-20) Glucose 90 (70-100) mg/dL Calcium 9.2 (8.6-10.3) mg/dL Total Bilirubin 0.50 (0.2-1.0) mg/dL AST 17 (13-39) U/L ALT 27 (7-52) U/L Alkaline Phosphatase 30 L (34-104) U/L Total Protein 6.7 (6.4-8.9) g/dL Albumin 3.8 (3.2-5.2) g/dL Globulin 2.9 (2-4) g/dL Albumin/Globulin Ratio 1.3 (1-3) Result Diagrams: 02/22/18 14:59 02/22/18 14:59 Lab Statement: Any lab studies that have been ordered have been reviewed, and results considered in the medical decision making process. Headache Course/Dx - Course Course Of Treatment: Patient presenting to the emergency department for ongoing headache. She is afebrile with stable vital signs. She has no neurological deficits on exam. Basic labs were ordered. Patient was started on IV fluids, Benadryl, Compazine and Toradol. I spoke with neurologist, Dr. Eugene, who was consulted on the patient several days ago. She recommends giving patient magnesium and 500 mg Solu-Medrol. She recommends if patient's headache is not significantly improved she should be admitted for MRI and further evaluation. Patient reexamined around 1730 she states h/a has improved from a 10/10 to a 6/ 10. Pt.'s parents are no present who just flew in from [place]. I spoke with Dr. Eugene again and she recommends admitting pt to the hospitalist service and she will see her in the morning. Plan was discussed with pt. and family. Labs are unremarkable. 180: I spoke with hospitalist, Dr. Amaya, and she has accepted pt. to her service. - Diagnoses Provider Diagnoses: Intractable headache Discharge - Sign-Out/Discharge Documenting (check all that apply): Discharge/Admit/Transfer - Discharge Plan Condition: Stable Disposition: ADMITTED TO [facility] Referrals: Collette Rivera MD [Primary Care Provider] - - Billing Disposition and Condition Condition: STABLE Disposition: Admitted to [facility]
--- NOTE | 2018-02-22 18:37 | RAD ---
INDICATION: Headaches. COMPARISON: There are no prior studies available for comparison. TECHNIQUE: Contiguous axial sections of the brain were obtained from the skull base to the vertex without contrast. FINDINGS: The ventricles, cisterns and sulci are within normal limits. No significant focal abnormality or mass effect is seen. There is no evidence for hemorrhage. No significant focal osseous abnormality is seen. The visualized portion of the paranasal sinuses and mastoid air cells appear clear. IMPRESSION: NO EVIDENCE FOR ACUTE INTRACRANIAL ABNORMALITY.
[2018-02-22] MEDS ORDERED: Acetaminophen TAB* 325 MG PO PRN (19:05)
[2018-02-22] MEDS ORDERED: Ondansetron INJ* 2 MG/ML VIAL IV PRN (19:05)
[2018-02-22] MEDS ORDERED: Al Hydrox/Mg Hydrox/Simet LIQ* 30 ML UDC PO PRN (19:05)
[2018-02-22] MEDS ORDERED: Amphetamine MIXED SALT TAB* 10 MG TAB PO PRN (19:20)
[2018-02-22] MEDS: oxyCODONE/Acetamin 5/325 MG* TAB PO PRN ×2 (19:33→23:50)
[2018-02-22] MEDS: Metaxalone TAB* 800 MG PO SCH (21:50)
[2018-02-22] MEDS: Ketorolac INJ* 30 MG/ML 1 ML VIAL IV PUSH PRN (22:00)
[2018-02-22] MEDS: NS 0.9% 1000 ML* 1,000 ML IV SCH (22:10)
--- NOTE | 2018-02-23 04:02 | HP ---
CC: Dr. Eugene * ADMISSION HISTORY AND PHYSICAL: DATE OF ADMISSION: 02/22/18 PATIENT OF: Dr. Livia Herman, attending hospitalist.* (DICTATED BY SHAYY CHUA) NEUROLOGICAL CONSULT: Dr. Eugene. CHIEF COMPLAINT: Intractable headache. HISTORY OF PRESENT ILLNESS: Poppy is a 22-year-old female, who carries past medical history significant for celiac disease, who reports 1-week history of worsening headache. The patient presented to the emergency room for the third time today in the past 7 days for evaluation of intractable headaches. She described her headaches as being severe at times, very unpredictable, started very orbital in character and then migrated to frontal headaches. She was evaluated 3 times in the emergency room, starting on the of that month where she had a sinus CT scan that revealed no paranasal sinuses disease. She was discharged home on muscle relaxant and then returned the following day with the same character of headache. She was given pain medication and IV fluid and again discharged home and she again returned 2 days later this morning with complaints of worsening headache. She reports associated photophobia, nausea, and vomiting, but denies any history of migraine headaches or an aura. Her headaches are now mostly frontal. However, she still has difficulty focusing with her eyes and also notes being able to sleep in the past couple of months. She denies alcohol use, similar complaints in the past, or any hormone replacement therapy. She was on contraceptive pills for a period of time a few years ago due to problems with her menstruation, but she has not had any oral contraceptive pills lately. It is to be mentioned that she was diagnosed with mononucleosis back in November and December of this year. She also was found to be in November of this year and she electively decided to terminate her . She denies any chills, however, she notes low-grade fever at home. She denies any recent sick contact or traveling. She had a brain CT earlier today that revealed no evidence of any acute abnormalities. Her laboratory workup was done on the , , and today that revealed normal white count, normal hemoglobin, and hematocrit. She also had chemical panel that was essentially within normal limits with the exception of C-reactive protein that was elevated with a value of 56. The patient had HIV checked that was nonreactive. She had lumbar puncture performed that revealed increased lymphocytes as well as evidence of probable mild viral meningitis. Given her intractable headaches with unclear etiology at this point, we were asked to see the patient for further evaluation and to discuss observation overnight as well as neurological consults. PAST MEDICAL HISTORY: As mentioned above, significant for celiac disease for which she has been careful about her food consumption. She was diagnosed with mono back in November and December of this year, however, her symptoms are completely resolved. She denies any history of diabetes, heart disease, asthma, or kidney disease. PAST SURGICAL HISTORY: Significant for wisdom teeth extraction a few years ago as well as most recently elective terminated in November of this year. MEDICATIONS: Her medication at home include: 1. Amphetamine 5 mg p.o. daily. 2. Adderall XR 15 mg p.o. daily. 3. Zyrtec 20 mg p.o. daily. 4. Skelaxin 800 mg p.o. t.i.d. ALLERGIES: Include GLUTEN and CEFUROXIME. FAMILY HISTORY: Noncontributory. 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 She is a nonsmoker, who consumes alcohol occasionally. Her parents live in [place] and she is planning to return back home after graduation. REVIEW OF SYSTEMS: See HPI. Otherwise, 14-point review of systems were reviewed and otherwise negative. PHYSICAL EXAMINATION GENERAL: She is a healthy-appearing young female, appears comfortable, lying comfortably in a dimmed light room and in no acute distress or discomfort. VITAL SIGNS: Revealed blood pressure of 143/89, pulse of 80, temperature of 98.8, O2 sat of 100% on room air. HEENT: Head is normocephalic, atraumatic. Sclerae anicteric. There is bilateral scleral injection noted. There is a small area of subconjunctival hematoma on the right side towards the medial aspect. Pupils are equal and reactive to light and accommodation. EOMs were intact. There is no temporal tenderness bilaterally. NECK: Supple. Trachea midline. No cervical adenopathy or thyromegaly noted. LUNGS: Clear to auscultation bilaterally. HEART: Regular rate and rhythm. Normal S1 and S2 without rubs, murmurs, or gallops. ABDOMEN: Soft, nontender, and nondistended. No hernias, masses, or hepatosplenomegaly. BACK: Normal curvature. No CVA tenderness. BREASTS: Deferred at this time. EXTREMITIES: Without cyanosis, clubbing, or edema. RECTAL: Deferred at this time. NEUROLOGIC: Grossly intact. DIAGNOSTIC STUDIES/LAB DATA: CBC with white count of 6000, hemoglobin 11.9, hematocrit of 35, and platelets of 256. Chemistry with sodium of 139, potassium is 4.0, chloride 103, CO2 27, BUN of 6, and creatinine of 0.6. Her glucose is 90, magnesium is 1.8 from prior visit. LFTs within normal limits and C-reactive protein done 2 days ago with value of 56. She has nonreactive HIV 1 and 2 antibody and her LP findings raised possibility of viral meningitis. Accessory Diagnostic Data: Sinus CT done 3 days ago was negative for any paranasal sinus disease. Brain CT done today was also negative for any acute finding. IMPRESSION: A 22-year-old female with past medical history significant for only celiac disease, who presented to the emergency room in three separate occasions within the last week with complaints of intractable headache with no history of migraine or trauma. ASSESSMENT AND PLAN: 1. Intractable headache. The patient will be admitted for observation and control of her headaches and nausea. Neurological consultation was requested with Dr. Eugene and her recommendations were taken including getting an MRI tomorrow as well as MRV with contrast to rule out any possibility of sinus thrombosis. The patient as mentioned above has a history of oral contraceptive pill use, however, that was a few years ago. She is a nonsmoker and she does not have any other risk factors except with her recent elective termination that was back in November of this year. She appears to be clinically stable at this point. I suspect this is likely related to a new onset of migraine headaches. We will follow her up accordingly and await more input from the neurology team. 2. Celiac disease. We will consider her dietary needs in that regard. 3. DVT prophylaxis. The patient is a low risk and we will encourage early ambulation. 4. Code status. She is a full code. TIME SPENT: I spent approximately 60 minutes admitting this patient with 50% of the time taking history and performing physical exam. I discussed the findings with Dr. Herman, who agreed to management plan. SHAYY CHUA [id number]/[facility] #: [id number] CURT
[2018-02-23] MEDS: oxyCODONE/Acetamin 5/325 MG* TAB PO PRN ×5 (06:12→23:40)
[2018-02-23] MEDS: NS 0.9% 1000 ML* 1,000 ML IV SCH (06:13)
[2018-02-23 07:13] LABS: EGFR Non-African American 145.6 (>60)
[2018-02-23 07:16] LABS: Hematocrit 36 % (35-47); Hemoglobin 12.8 g/dl (12.0-16.0); Mean Corpuscular HGB Conc 35 g/dl (31-36); Mean Corpuscular Hemoglobin 31 pg (27-31); Mean Corpuscular Volume 87 fL (80-97); Mean Platelet Volume 7.1 um3 (7.4-10.4); Platelet Count 312 10^3/ul (150-450); Red Blood Count 4.19 10^6/ul (4.00-5.40); Red Cell Distribution Width 13 % (10.5-15); White Blood Count 8.6 10^3/ul (3.5-10.8)
[2018-02-23 07:59] LABS: ABS Basophils 0 10^3/ul (0-0.2); ABS Eosinophils 0 10^3/ul (0-0.6); ABS Lymphocytes 0.9 10^3/ul (1.0-4.8); ABS Monocytes 0.1 10^3/ul (0-0.8); ABS Neutrophils 7.4 10^3/ul (1.5-7.7); ABS Nucleated RBC 0 10^3/ul; Eosinophil % 0 % (0-6); Lymphocyte % 10.7 % (25-47); Nucleated Red Blood Cells % 0.1
[2018-02-23] MEDS: Metaxalone TAB* 800 MG PO SCH ×3 (09:20→20:57)
[2018-02-23] MEDS: Cetirizine* 10 MG TAB PO SCH (09:21)
[2018-02-23] MEDS: Ketorolac INJ* 30 MG/ML 1 ML VIAL IV PUSH PRN ×3 (09:22→23:10)
[2018-02-23] MEDS ORDERED: Gadoteridol* (CONTRAST) 279.3 MG/ML 10 ML IV ONE (11:34)
--- NOTE | 2018-02-23 12:43 | RAD ---
HISTORY: new intractable LEI, R eye swelling COMPARISONS: Head CT dated February 22, 2018 TECHNIQUE: The following sequences were obtained of the head: Sagittal T1-weighted images, axial T2-weighted images, axial FLAIR images, axial proton density images, axial T1-weighted images. Additionally, axial diffusion-weighted images were obtained with calculated apparent diffusion coefficients. Thin section coronal and axial T1 and T2 in phase and water phase images were obtained through the orbits. Additionally, axial T1-weighted images of the head, with thin section axial and coronal T1-wieghted water phase images through the orbits, were obtained after contrast enhancement with a gadolinium-based contrast agent, FINDINGS: HEMORRHAGE/INFARCT: There is no hemorrhage or acute infarct. MASSES/SHIFT: There is no mass or shift. EXTRA-AXIAL SPACES/MENINGES: There is mild diffuse dural thickening and enhancement. SULCI AND VENTRICLES: The sulci and ventricles are normal in size and position for the patient's stated age. CEREBRUM: There are no focal parenchymal abnormalities. BRAINSTEM: There are no focal parenchymal abnormalities. CEREBELLUM: There are no focal parenchymal abnormalities. The cerebellar tonsils are normal in size and position. SELLA: The pituitary gland is mildly prominent but is considered within normal limits for age and sex. PINEAL: The pineal region is clear. CP ANGLE/TEMPORAL BONES: The labyrinthine structures are grossly normal. VESSELS: There is loss of the flow-void within the left transverse sinus. DIFFUSION ABNORMALITIES: There are no diffusion abnormalities. PARANASAL SINUSES/MASTOIDS: The paranasal sinuses are clear. ORBITS: The globes are round. The optic nerves are symmetric in caliber and signal intensity. The extraocular muscles are normal in shape, size, and signal intensity, with normal tendinous insertions. There is no post-septal or intraconal mass or inflammatory change. The superior ophthalmic veins are normal and symmetric in size. The lacrimal apparati are normal. BONES AND SOFT TISSUE: No bone or soft tissue abnormalities are noted. OTHER: None IMPRESSION: 1. THE OPTIC NERVES ARE SYMMETRIC IN CALIBER AND SIGNAL INTENSITY WITHOUT ABNORMAL ENHANCEMENT. 2. THERE IS MILD DIFFUSE MENINGEAL ENHANCEMENT AND THICKENING WHICH CAN BE SEEN IN ASSOCIATION WITH INTRACRANIAL HYPOTENSION, INCLUDING THE SEQUELA OF LUMBAR PUNCTURE. 3. LOSS OF THE FLOW-VOID OF THE LEFT TRANSVERSE SINUS SUGGESTIVE OF VENOUS SINUS THROMBOSIS..
--- NOTE | 2018-02-23 12:45 | RAD ---
HISTORY: Headaches COMPARISONS: None TECHNIQUE: Multiple 3-D phase contrast MR venography was performed, with multiple 3-D maximum intensity projection reconstructions. FINDINGS: VENOUS SINUSES: There is decreased flow related enhancement within the left transverse sinus suggestive of venous sinus thrombosis. There is reconstitution at the level of the transverse-sigmoid junction. DEEP VEINS: The deep veins are patent. The internal cerebral veins are dominant over the basal veins of Sreekanth. OTHER FINDINGS: None IMPRESSION: FINDINGS SUGGESTIVE OF LEFT TRANSVERSE VENOUS SINUS THROMBOSIS.
[2018-02-23] MEDS ORDERED: Enoxaparin(*) 80 MG/0.8 ML SYR SUBCUT ONE (13:30)
--- NOTE | 2018-02-23 13:32 | PN ---
Subjective Date of Service: 02/23/18 Interval History: Headache improved, but still needs analgesics. No more nausea. Appetite OK. No new c/o. Objective Active Medications: Acetaminophen (Tylenol Tab*) 650 mg PO Q4H PRN PRN Reason: FEVER/PAIN Al Hydrox/Mg Hydrox/Simethicone (Maalox Plus*) 30 ml PO Q6H PRN PRN Reason: INDIGESTION Amphetamine/Dextroamphetamine (Adderall Tab*) 5 mg PO DAILY PRN PRN Reason: ADHD Cetirizine HCl (Zyrtec*) 20 mg PO DAILY [facility]; Protocol Last Admin: 02/23/18 09:21 Dose: 20 mg Enoxaparin Sodium (Lovenox(*)) 70 mg SUBCUT ONCE ONE Stop: 02/23/18 13:31 Enoxaparin Sodium (Lovenox(*)) 70 mg SUBCUT Q12H [facility] Ketorolac Tromethamine (Toradol Inj*) 30 mg IV PUSH Q6H PRN PRN Reason: PAIN Last Admin: 02/23/18 09:22 Dose: 30 mg Metaxalone (Skelaxin Tab*) 800 mg PO TID TANVIR Last Admin: 02/23/18 09:20 Dose: 800 mg Ondansetron HCl (Zofran Inj*) 4 mg IV Q4H PRN PRN Reason: NAUSEA/VOMITING Oxycodone/Acetaminophen (Percocet 5/325 Tab*) 1 tab PO Q4H PRN PRN Reason: Pain Last Admin: 02/23/18 11:00 Dose: 1 tab Vital Signs - 8 hr 02/23/18 02/23/18 02/23/18 06:12 07:22 08:12 Temperature 98.3 F Pulse Rate 63 Respiratory 16 15 18 Rate Blood Pressure 119/58 (mmHg) O2 Sat by Pulse 99 Oximetry 02/23/18 02/23/18 09:20 11:00 Temperature Pulse Rate Respiratory 18 18 Rate Blood Pressure (mmHg) O2 Sat by Pulse Oximetry Oxygen Devices in Use Now: None Appearance: Alert, sitting up in bed. In good spirits. Looks comfortable. Extremities: No Edema, No Clubbing, Cyanosis, - Skin: No Rash or Ulcers, No Nodules or Sclerosis, - Neurological: Alert and Oriented x 3, NL Sensation Result Diagrams: 02/23/18 06:47 02/23/18 06:47 Additional Lab and Data: Lab Results 02/22/18 02/22/18 Range/Units 14:59 14:59 WBC 6.4 (3.5-10.8) 10^3/ul RBC 3.93 L (4.00-5.40) 10^6/ul Hgb 11.9 L (12.0-16.0) g/dl Hct 35 (35-47) % MCV 88 (80-97) fL MCH 30 (27-31) pg MCHC 35 (31-36) g/dl RDW 13 (10.5-15) % Plt Count 256 (150-450) 10^3/ul MPV 7.1 L (7.4-10.4) um3 Neut % (Auto) 63.1 (38-83) % Lymph % (Auto) 25.4 (25-47) % [place] % (Auto) 9.0 H (0-7) % Eos % (Auto) 2.1 (0-6) % Baso % (Auto) 0.4 (0-2) % Absolute Neuts (auto) 4.1 (1.5-7.7) 10^3/ul Absolute Lymphs (auto) 1.6 (1.0-4.8) 10^3/ul Absolute Monos (auto) 0.6 (0-0.8) 10^3/ul Absolute Eos (auto) 0.1 (0-0.6) 10^3/ul Absolute Basos (auto) 0 (0-0.2) 10^3/ul Absolute Nucleated RBC 0 10^3/ul Nucleated RBC % 0 Sodium 139 (135-145) mmol/L Potassium 4.0 (3.5-5.0) mmol/L Chloride 103 (101-111) mmol/L Carbon Dioxide 27 (22-32) mmol/L Anion Gap 9 (2-11) mmol/L BUN 6 (6-24) mg/dL Creatinine 0.61 (0.51-0.95) mg/dL Est GFR ( Amer) 149.8 (>60) Est GFR (Non-Af Amer) 123.8 (>60) BUN/Creatinine Ratio 9.8 (8-20) Glucose 90 (70-100) mg/dL Calcium 9.2 (8.6-10.3) mg/dL Total Bilirubin 0.50 (0.2-1.0) mg/dL AST 17 (13-39) U/L ALT 27 (7-52) U/L Alkaline Phosphatase 30 L (34-104) U/L Total Protein 6.7 (6.4-8.9) g/dL Albumin 3.8 (3.2-5.2) g/dL Globulin 2.9 (2-4) g/dL Albumin/Globulin Ratio 1.3 (1-3) Assess/Plan/Problems-Billing Assessment: - Patient Problems (1) Cerebral venous sinus thrombosis Current Visit: Yes Status: Acute Code(s): G08 - INTRACRANIAL AND INTRASPINAL PHLEBITIS AND THROMBOPHLEBITIS SNOMED Code(s): 626367053 Comment: Start enoxaparin. Discussed with Dr. Eugene. (2) Adult celiac disease Current Visit: Yes Status: Acute Code(s): K90.0 - CELIAC DISEASE SNOMED Code(s): 11266694 Comment: Treated by diet. (3) Psychiatric diagnosis Current Visit: Yes Status: Acute Code(s): F99 - MENTAL DISORDER, NOT OTHERWISE SPECIFIED SNOMED Code(s): 79456738 Comment: Continue Adderall.
--- NOTE | 2018-02-23 17:19 | CONS ---
CONSULTATION REPORT: DATE OF CONSULT: 02/23/18 REASON FOR CONSULT: New onset intractable headache in the setting of mildly abnormal CSF. HISTORY OF PRESENT ILLNESS: Poppy Quinones is a 22[facility] who for the last 8 days has had headaches which have been intermittently severe and have varied in location; sometimes frontal, sometimes more posterior, radiating down into her neck. These have been accompanied by photophobia as well as some phonophobia and get worse with activity. Over the last day or two , she has had nausea and in the ER yesterday vomited 3 times while in the waiting room. She reports the initial onset of this headache on the of this month and was seen initially at [facility] where she was given Toradol with improvement in her headache and it was thought that this was related to allergies and so it was recommended that she take an allergy medication. She then returned for further evaluation to our ER on the where she had a CT of her sinuses and again was treated with pain medications and antiemetics and was discharged to home. Of note, she was also prescribed prednisone a 5-day course on her discharge from the urgent care over the weekend. She then returned on Monday the with continued headache and actually been noted to have a low grade fever to 100.6. She underwent a lumbar puncture which showed normal protein and glucose but they were 6 white blood cells and the pathologist who reviewed those cells indicated that there was an acute inflammatory component. Her headache decreased with IV medications in the emergency department again and she felt well enough to go home. She states that on Monday, her headache was not gone but was manageable with alternating Tylenol and Ibuprofen, but when she woke on , yesterday, the headache had again increased and so she returned to the emergency department. With treatment with Toradol, diphenhydramine, magnesium and 500 mg of Solu-Medrol as well as Compazine, she has had intermittent relief of her headache but it has returned and at the time of my evaluation this morning, was approximately a 5/10 and located frontally. She also notes that in the last day , she has developed a cough productive of some yellow sputum which is new for her. She has had some neck stiffness which is also new. She denies any sick contacts and denies any systemic illness just prior to this headache beginning, though she was diagnosed with mono and was sick essentially all of December into mid January. Most recently she had received Toradol at 2200 last evening, Skelaxin at 2150 and Percocet at 0612 this morning prior to my evaluation. I believe that just prior to my evaluation, she had also received another dose of IV Toradol. She denies any focal symptoms such as vision changes, speech changes, numbness, tingling, weakness in her extremities, balance difficulties. She does note occasional "clear dots" in her vision but this had preceded the headache. She denies any significant history of headaches in her somewhat recent medical history and of significance is that she had an early first trimester termination in November of this year and then subsequently came down with EBV infection. Neurology consultation was requested secondary to her repeated intractable headache in the setting of the mildly abnormal CSF. The patient also noted that when she was here on Monday her right eye was swollen and she says nearly swollen shut with some redness surrounding the eye. She has had some pain with eye movements but not any worse in the right and the left eye. She has had no vision changes in that eye. She felt perhaps it was due to the prednisone that she was taking. PAST MEDICAL HISTORY: 1. ADHD, on Adderall but she has not used this in 3 weeks. 2. Celiac disease, which she reports was diagnosed through a genetic test as well as elimination of gluten significantly improving her symptoms of early satiety. 3. Recent early first trimester termination. HOME MEDICATIONS: 1. Vitamin C. 2. Probiotic. 3. Multivitamin. 4. Adderall 15 mg daily and 5 mg p.r.n. but she has not used this in 3 weeks. 5. She has also recently been prescribed Zyrtec and metaxalone. ALLERGIES: GLUTEN causes diarrhea and rash, CEFUROXIME causes difficulty breathing. FAMILY HISTORY: Mother with a history of migraine headaches induced by alcohol use, grandparents had colon cancer and it sounds like the other grandparent of traumatic intracranial hemorrhage on anticoagulation. SOCIAL HISTORY: She denies tobacco use. She drinks socially a couple of times a week with her friends. She denies any illicit drug use. 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 She is from [place] and her parents are currently visiting from [place] secondary to her illness. REVIEW OF SYSTEMS: She denies any recent chest pain, skin rashes, joint swelling, known tick bites, breathing difficulties, otherwise as per the HPI. PHYSICAL EXAM: Vital Signs: Temperature 97.7, blood pre with a sure 111/54, heart rate 86, oxygen saturation 98% on room air. As mentioned, she had a fever to 100.6 noted in the emergency department on 02/20. On general exam, she is a pleasant young woman in no acute distress. Her affect is normal. Her heart is in a regular rate and rhythm with 2/6 systolic ejection murmur. Lungs are clear to auscultation. She has no rashes noted. There is no lower extremity edema. She has mild erythema on the upper lid on her right eye but no clear swelling. On neurologic exam, she is fully awake, alert and oriented. Speech is clear without dysarthria or aphasia. Pupils are equal, round, and reactive from 2 to 1.5 mm bilaterally in a bright room. Versions are full without nystagmus and she reports slight discomfort with eye movements. Leonard are full to confrontation. Facial sensation and musculature is full and symmetric. Hearing is intact to finger rub. Palate elevates symmetrically and the tongue is midline. On motor examination, she has normal bulk and tone in the upper and lower extremities with full strength proximally and distally and no pronator drift. Sensation is intact to light touch in the upper and lower extremities. Reflexes are 2 to 3+ in the upper extremities and knees, 2+ at the ankles with downgoing toes. [id number] and [id number] are intact without ataxia. Romberg is negative. She is able to walk on her heels and toes. Her gait is narrow based and stable. DIAGNOSTIC STUDIES/LAB DATA: Her recent CBC shows a normal white blood cell count, normal hematocrit and platelet count. On 02/19, her white blood cell count was 11.4, but has been normal since then. Her sed rate this morning is 32. Her chemistry panel shows a normal BMP, CRP of 39.37, which is down from 56.86 on 02/20/18. Her liver functions are normal. As mentioned her CSF profile on 02/20/18 showed 6 white blood cells, 1 rbc, glucose was 60, total protein of 30. Gram Stain was negative. Her HIV is nonreactive. She had a noncontrast brain CT performed yesterday which showed no intracranial abnormalities. IMPRESSION: Poppy Quinones is a 22-year-old woman presenting with recurrent headaches with migrainous qualities in the setting of mild fever and leukocytosis within the past week and a mildly abnormal CSF pleocytosis. Most likely this is a mild viral meningitis. She also has some mild elevations of systemic inflammatory markers. I will add on Lyme serology if this has not yet been done. We have ordered MRI scan of the brain as well as MRV secondary to her recent termination which can produce a mild hypocoagulable state. Given the swelling of her eye several days ago, I also requested thin cuts through the orbits and we will do the MRI with contrast to focus on that. We will continue focussing on her pain control with Toradol antiemetics as needed as well as Percocet. We will need to keep her inhouse until her pain control is at a level where she feels like she would be able to manage at home and we need to make sure that the results of the above reference studies are unremarkable as well. Thank you for this consultation. [id number]/[facility] #: [id number] CURT
[2018-02-23] MEDS: Enoxaparin(*) 80 MG/0.8 ML SYR SUBCUT SCH (23:13)
[2018-02-24] MEDS: oxyCODONE/Acetamin 5/325 MG* TAB PO PRN ×2 (03:45→08:12)
[2018-02-24] MEDS: Metaxalone TAB* 800 MG PO SCH ×3 (08:12→20:56)
[2018-02-24] MEDS: Cetirizine* 10 MG TAB PO SCH (08:12)
--- NOTE | 2018-02-24 09:28 | PN ---
Subjective Date of Service: 02/24/18 Interval History: Headache improving daily with ups and downs. Still needs oxy/APAP No new c/o. Objective Active Medications: Acetaminophen (Tylenol Tab*) 650 mg PO Q4H PRN PRN Reason: FEVER/PAIN Al Hydrox/Mg Hydrox/Simethicone (Maalox Plus*) 30 ml PO Q6H PRN PRN Reason: INDIGESTION Amphetamine/Dextroamphetamine (Adderall Tab*) 5 mg PO DAILY PRN PRN Reason: ADHD Cetirizine HCl (Zyrtec*) 20 mg PO DAILY [facility]; Protocol Last Admin: 02/24/18 08:12 Dose: 20 mg Enoxaparin Sodium (Lovenox(*)) 70 mg SUBCUT Q12H [facility] Last Admin: 02/23/18 23:13 Dose: 70 mg Ketorolac Tromethamine (Toradol Inj*) 30 mg IV PUSH Q6H PRN PRN Reason: PAIN Last Admin: 02/23/18 23:10 Dose: 30 mg Lidocaine/Prilocaine (Emla 5 Gm*) 1 applic TOPICAL .SEE DIRECTIONS [facility] Metaxalone (Skelaxin Tab*) 800 mg PO TID [facility] Last Admin: 02/24/18 08:12 Dose: 800 mg Ondansetron HCl (Zofran Inj*) 4 mg IV Q4H PRN PRN Reason: NAUSEA/VOMITING Oxycodone/Acetaminophen (Percocet 5/325 Tab*) 1 tab PO Q4H PRN PRN Reason: Pain Last Admin: 02/24/18 08:12 Dose: 1 tab Warfarin Sodium (Coumadin Tab(*)) 5 mg PO DAILY@1700 [facility]; Protocol Vital Signs - 8 hr 02/24/18 02/24/18 02/24/18 02:41 03:36 03:45 Temperature 98.5 F Pulse Rate 59 Respiratory 15 16 16 Rate Blood Pressure 115/56 (mmHg) O2 Sat by Pulse 99 Oximetry 02/24/18 02/24/18 02/24/18 05:46 07:25 08:12 Temperature 98.5 F Pulse Rate 57 Respiratory 15 18 16 Rate Blood Pressure 114/64 (mmHg) O2 Sat by Pulse 100 Oximetry Oxygen Devices in Use Now: None Appearance: Alert, sitting up in bed. In good spirits, looks comfortable. Eyes: No Scleral Icterus Extremities: No Edema, No Clubbing, Cyanosis, - Skin: No Rash or Ulcers, No Nodules or Sclerosis, - Neurological: Alert and Oriented x 3, NL Sensation Result Diagrams: 02/23/18 06:47 02/23/18 06:47 Additional Lab and Data: Lab Results 02/22/18 02/22/18 Range/Units 14:59 14:59 WBC 6.4 (3.5-10.8) 10^3/ul RBC 3.93 L (4.00-5.40) 10^6/ul Hgb 11.9 L (12.0-16.0) g/dl Hct 35 (35-47) % MCV 88 (80-97) fL MCH 30 (27-31) pg MCHC 35 (31-36) g/dl RDW 13 (10.5-15) % Plt Count 256 (150-450) 10^3/ul MPV 7.1 L (7.4-10.4) um3 Neut % (Auto) 63.1 (38-83) % Lymph % (Auto) 25.4 (25-47) % [place] % (Auto) 9.0 H (0-7) % Eos % (Auto) 2.1 (0-6) % Baso % (Auto) 0.4 (0-2) % Absolute Neuts (auto) 4.1 (1.5-7.7) 10^3/ul Absolute Lymphs (auto) 1.6 (1.0-4.8) 10^3/ul Absolute Monos (auto) 0.6 (0-0.8) 10^3/ul Absolute Eos (auto) 0.1 (0-0.6) 10^3/ul Absolute Basos (auto) 0 (0-0.2) 10^3/ul Absolute Nucleated RBC 0 10^3/ul Nucleated RBC % 0 Sodium 139 (135-145) mmol/L Potassium 4.0 (3.5-5.0) mmol/L Chloride 103 (101-111) mmol/L Carbon Dioxide 27 (22-32) mmol/L Anion Gap 9 (2-11) mmol/L BUN 6 (6-24) mg/dL Creatinine 0.61 (0.51-0.95) mg/dL Est GFR ( Amer) 149.8 (>60) Est GFR (Non-Af Amer) 123.8 (>60) BUN/Creatinine Ratio 9.8 (8-20) Glucose 90 (70-100) mg/dL Calcium 9.2 (8.6-10.3) mg/dL Total Bilirubin 0.50 (0.2-1.0) mg/dL AST 17 (13-39) U/L ALT 27 (7-52) U/L Alkaline Phosphatase 30 L (34-104) U/L Total Protein 6.7 (6.4-8.9) g/dL Albumin 3.8 (3.2-5.2) g/dL Globulin 2.9 (2-4) g/dL Albumin/Globulin Ratio 1.3 (1-3) Assess/Plan/Problems-Billing Assessment: - Patient Problems (1) Cerebral venous sinus thrombosis Current Visit: Yes Status: Acute Code(s): G08 - INTRACRANIAL AND INTRASPINAL PHLEBITIS AND THROMBOPHLEBITIS SNOMED Code(s): 715705714 Comment: Started enoxaparin 02/23. Start warfarin 02/24. Discussed with Dr. Rivers. (2) Adult celiac disease Current Visit: Yes Status: Acute Code(s): K90.0 - CELIAC DISEASE SNOMED Code(s): 75054143 Comment: Treated by diet. (3) Psychiatric diagnosis Current Visit: Yes Status: Acute Code(s): F99 - MENTAL DISORDER, NOT OTHERWISE SPECIFIED SNOMED Code(s): 11773051 Comment: Continue Adderall.
--- NOTE | 2018-02-24 09:48 | PN ---
Subjective Date of Service: 02/24/18 Interval History: No new issues overnight. Continued intermittent headache. Currently, she has a "bad" headache and is requesting pain medication. Some light and sound sensitivity with the headaches. No vomiting but she does get nauseated. No new focal issues, numbness, tingling or weakness. Brain MRI: 1. Optic nerves are symmetric in caliber and signal intensity without abnormal enhancement 2. Mild diffuse meningeal enhancement and thickening, can be seen with intracranial hypotension 3. Loss of flow-void of the left transverse sinus MRV: Suggestive of Left Transverse venous sinus thrombosis Objective Active Medications: Acetaminophen (Tylenol Tab*) 650 mg PO Q4H PRN PRN Reason: FEVER/PAIN Al Hydrox/Mg Hydrox/Simethicone (Maalox Plus*) 30 ml PO Q6H PRN PRN Reason: INDIGESTION Amphetamine/Dextroamphetamine (Adderall Tab*) 5 mg PO DAILY PRN PRN Reason: ADHD Cetirizine HCl (Zyrtec*) 20 mg PO DAILY [facility]; Protocol Last Admin: 02/24/18 08:12 Dose: 20 mg Enoxaparin Sodium (Lovenox(*)) 70 mg SUBCUT Q12H [facility] Last Admin: 02/23/18 23:13 Dose: 70 mg Ketorolac Tromethamine (Toradol Inj*) 30 mg IV PUSH Q6H PRN PRN Reason: PAIN Last Admin: 02/23/18 23:10 Dose: 30 mg Lidocaine/Prilocaine (Emla 5 Gm*) 1 applic TOPICAL .SEE DIRECTIONS [facility] Metaxalone (Skelaxin Tab*) 800 mg PO TID [facility] Last Admin: 02/24/18 08:12 Dose: 800 mg Ondansetron HCl (Zofran Inj*) 4 mg IV Q4H PRN PRN Reason: NAUSEA/VOMITING Oxycodone/Acetaminophen (Percocet 5/325 Tab*) 1 tab PO Q4H PRN PRN Reason: Pain Last Admin: 02/24/18 08:12 Dose: 1 tab Warfarin Sodium (Coumadin Tab(*)) 5 mg PO DAILY@1700 [facility]; Protocol Vital Signs 02/23/18 02/23/18 02/23/18 11:00 11:25 12:41 Temperature 98.0 F Pulse Rate 65 Respiratory 18 18 12 Rate Blood Pressure 115/56 (mmHg) O2 Sat by Pulse 98 Oximetry 02/23/18 02/23/18 02/23/18 14:18 15:09 15:49 Temperature 98.1 F Pulse Rate 69 Respiratory 18 18 16 Rate Blood Pressure 117/58 (mmHg) O2 Sat by Pulse 99 Oximetry 02/23/18 02/23/18 02/23/18 16:20 17:10 18:17 Temperature Pulse Rate Respiratory 18 18 18 Rate Blood Pressure (mmHg) O2 Sat by Pulse Oximetry 02/23/18 02/23/18 02/23/18 19:33 20:00 20:18 Temperature 97.6 F Pulse Rate 69 Respiratory 16 16 20 Rate Blood Pressure 128/65 (mmHg) O2 Sat by Pulse 100 Oximetry 02/23/18 02/23/18 02/23/18 20:57 22:18 23:23 Temperature Pulse Rate Respiratory 16 15 16 Rate Blood Pressure (mmHg) O2 Sat by Pulse Oximetry 02/23/18 02/23/18 02/24/18 23:29 23:40 02:41 Temperature 98.0 F Pulse Rate 59 Respiratory 16 17 15 Rate Blood Pressure 128/74 (mmHg) O2 Sat by Pulse 99 Oximetry 02/24/18 02/24/18 02/24/18 03:36 03:45 05:46 Temperature 98.5 F Pulse Rate 59 Respiratory 16 16 15 Rate Blood Pressure 115/56 (mmHg) O2 Sat by Pulse 99 Oximetry 02/24/18 02/24/18 07:25 08:12 Temperature 98.5 F Pulse Rate 57 Respiratory 18 16 Rate Blood Pressure 114/64 (mmHg) O2 Sat by Pulse 100 Oximetry Oxygen Devices in Use Now: None Neurology Exam: General: HEENT: Normocephalic/atraumatic, sclera anicteric, mucous membranes moist Neck: Supple Chest: Clear to auscultation bilaterally Cardiovascular: Regular rate and rhythm without murmurs, rubs, gallops Abdomen: Soft, nontender/nondistended Extremities: No clubbing, cyanosis, or edema. Skin is warm and dry Neurological Findings: Awake, Alert, Oriented x3 Speech: fluent without dysarthria, repetition intact Cranial Nerve: PEERL, EOM intact, VFF, no nystagmus, face symmetric bilaterally , facial sensation intact, hearing intact to finger rub bilaterally, palate elevates symmetrically, tongue midline Motor: Normal tone. 5/5 throughout Sensation: intact to LT/PP bilaterally upper and lower extremities Deep Tendon Reflex: 2+ symmetric in the upper/lower extremities Finger to nose, rapid alternating movements intact without tremor, no dysdiadochokinesia Gait: intact with good arm swing and stride Result Diagrams: 02/23/18 06:47 02/23/18 06:47 Additional Lab and Data: Lab Results 02/22/18 02/22/18 Range/Units 14:59 14:59 WBC 6.4 (3.5-10.8) 10^3/ul RBC 3.93 L (4.00-5.40) 10^6/ul Hgb 11.9 L (12.0-16.0) g/dl Hct 35 (35-47) % MCV 88 (80-97) fL MCH 30 (27-31) pg MCHC 35 (31-36) g/dl RDW 13 (10.5-15) % Plt Count 256 (150-450) 10^3/ul MPV 7.1 L (7.4-10.4) um3 Neut % (Auto) 63.1 (38-83) % Lymph % (Auto) 25.4 (25-47) % [place] % (Auto) 9.0 H (0-7) % Eos % (Auto) 2.1 (0-6) % Baso % (Auto) 0.4 (0-2) % Absolute Neuts (auto) 4.1 (1.5-7.7) 10^3/ul Absolute Lymphs (auto) 1.6 (1.0-4.8) 10^3/ul Absolute Monos (auto) 0.6 (0-0.8) 10^3/ul Absolute Eos (auto) 0.1 (0-0.6) 10^3/ul Absolute Basos (auto) 0 (0-0.2) 10^3/ul Absolute Nucleated RBC 0 10^3/ul Nucleated RBC % 0 Sodium 139 (135-145) mmol/L Potassium 4.0 (3.5-5.0) mmol/L Chloride 103 (101-111) mmol/L Carbon Dioxide 27 (22-32) mmol/L Anion Gap 9 (2-11) mmol/L BUN 6 (6-24) mg/dL Creatinine 0.61 (0.51-0.95) mg/dL Est GFR ( Amer) 149.8 (>60) Est GFR (Non-Af Amer) 123.8 (>60) BUN/Creatinine Ratio 9.8 (8-20) Glucose 90 (70-100) mg/dL Calcium 9.2 (8.6-10.3) mg/dL Total Bilirubin 0.50 (0.2-1.0) mg/dL AST 17 (13-39) U/L ALT 27 (7-52) U/L Alkaline Phosphatase 30 L (34-104) U/L Total Protein 6.7 (6.4-8.9) g/dL Albumin 3.8 (3.2-5.2) g/dL Globulin 2.9 (2-4) g/dL Albumin/Globulin Ratio 1.3 (1-3) ESR/CRP elevated Assessment/Plan Assessment: 22 year old with recent development of severe headaches, found to have venous sinus thrombosis now on Lovenox as bridge to Coumadin. --Plan to start Coumadin today, continue Lovenox until therapeutic. Will treat for 3-6 months on Coumadin --Continued pain management with Toradol/Percocet --Hypercoagulable panel pending. Recent termination could also cause hypercoagulable state --Previous LP on 02.20 showed 6 WBC but likely reactive. Very low suspicion for infection in light of VST --Plan for follow up with me 2 weeks after D/C.
[2018-02-24] MEDS: Ketorolac INJ* 30 MG/ML 1 ML VIAL IV PUSH PRN (10:06)
[2018-02-24] MEDS ORDERED: Morphine VIAL* 4 MG/ML VIAL (1 ml vial) IV ONE (11:51)
[2018-02-24] MEDS: Enoxaparin(*) 80 MG/0.8 ML SYR SUBCUT SCH ×2 (11:59→22:25)
[2018-02-24] MEDS: Morphine VIAL* 4 MG/ML VIAL (1 ml vial) IV ONE ×2 (11:59→12:06)
[2018-02-24] MEDS: Morphine INJ* 2 MG/ML 1 ML CARPUJECT IV ONE ×2 (12:05→15:31)
--- NOTE | 2018-02-24 12:17 | PN ---
Progress Note - Progress Note Date of Service: 02/24/18 Note: Called to bedside around 11 am for worsening headache, no 8/10, frontal. Worse than her headaches in the last 24 hours but not most severe since the symptoms began. Exam remains non-focal and fundoscopic exam shows no evidence of papilledema. She is pleasant and cooperative, answering all questions. I also spoke with the parents and answered a number of their questions. Plan: 1. Repeat Head CT to rule out any new hemorrhage or shift: Negative 2. MS: 1 mg given X 1. Will monitor for pain control
--- NOTE | 2018-02-24 12:47 | RAD ---
INDICATION: Worsening headaches. Sinus thrombosis. COMPARISON: CT brain February 22, 2018; MRV February 23, 2018 TECHNIQUE: Noncontrast axial source images were acquired from the skull base to the vertex. FINDINGS: Ventricles/sulci: The ventricles and cisterns are normal in size and configuration for age. Brain parenchyma: There is no focal parenchymal finding, evidence of intracranial mass, or intracranial mass effect. Intracranial hemorrhage:None. Extra-axial spaces: There are no abnormal extra axial fluid collections or evidence of extra-axial mass. Calvarium: There is no calvarial fracture or other calvarial abnormality. Scalp: There is no evidence of scalp or extracalvarial soft tissue abnormality. Paranasal sinuses/mastoid: The paranasal sinuses and mastoid air cells are clear. Other: None. IMPRESSION: NEGATIVE NONCONTRAST CT EXAMINATION
[2018-02-24] MEDS ORDERED: oxyCODONE TAB* 5 MG TAB PO PRN (12:49)
[2018-02-24] MEDS: oxyCODONE TAB* 5 MG TAB PO PRN ×2 (13:09→20:52)
[2018-02-24] MEDS ORDERED: Warfarin TAB(*) 5 MG PO SCH (17:00)
[2018-02-24] MEDS ORDERED: Morphine VIAL* 4 MG/ML VIAL (1 ml vial) IV PRN (19:06)
[2018-02-24] MEDS: Acetaminophen TAB* 325 MG PO PRN (20:51)
[2018-02-24] MEDS: Lidocaine 2.5%/Prilocain 2.5%* 5 GM TUBE TOPICAL SCH (22:00)
[2018-02-25] MEDS: oxyCODONE TAB* 5 MG TAB PO PRN ×4 (03:55→14:12)
[2018-02-25] MEDS: Cetirizine* 10 MG TAB PO SCH (07:53)
[2018-02-25] MEDS: Metaxalone TAB* 800 MG PO SCH (07:53)
[2018-02-25] MEDS: Acetaminophen TAB* 325 MG PO PRN (07:55)
[2018-02-25] MEDS ORDERED: Acetaminophen TAB* 325 MG PO PRN (08:50)
--- NOTE | 2018-02-25 08:56 | PN ---
Subjective Date of Service: 02/25/18 Interval History: Continues to have headaches but much better overall on the Tylenol Oxycodone regimen. She denies any new symptoms including no numbness or tingling, no focal weakness, no N/V, no vision changes or speech difficulties. Slept well overnight and has an appetite this am. She is going to give herself Lovenox injection today and if she can tolerate it, will go home with Lovenox injections , oral pain control. Objective Active Medications: Acetaminophen (Tylenol Tab*) 650 mg PO Q8H PRN PRN Reason: FEVER/PAIN Last Admin: 02/25/18 07:55 Dose: 650 mg Al Hydrox/Mg Hydrox/Simethicone (Maalox Plus*) 30 ml PO Q6H PRN PRN Reason: INDIGESTION Amphetamine/Dextroamphetamine (Adderall Tab*) 5 mg PO DAILY PRN PRN Reason: ADHD Cetirizine HCl (Zyrtec*) 20 mg PO DAILY [facility]; Protocol Last Admin: 02/25/18 07:53 Dose: 20 mg Enoxaparin Sodium (Lovenox(*)) 70 mg SUBCUT Q12H [facility] Last Admin: 02/24/18 22:25 Dose: 70 mg Ketorolac Tromethamine (Toradol Inj*) 30 mg IV PUSH Q6H PRN PRN Reason: PAIN Last Admin: 02/24/18 10:06 Dose: 30 mg Lidocaine/Prilocaine (Emla 5 Gm*) 1 applic TOPICAL .SEE DIRECTIONS [facility] Last Admin: 02/24/18 22:00 Dose: 1 applic Metaxalone (Skelaxin Tab*) 800 mg PO TID [facility] Last Admin: 02/25/18 07:53 Dose: 800 mg Morphine Sulfate (Morphine Vial*) 4 mg IV Q4H PRN PRN Reason: PAIN Last Admin: 02/24/18 19:27 Dose: 4 mg Ondansetron HCl (Zofran Inj*) 4 mg IV Q4H PRN PRN Reason: NAUSEA/VOMITING Oxycodone HCl (Roxycodone Tab*) 5 mg PO Q3H PRN PRN Reason: PAIN - MODERATE TO SEVERE Last Admin: 02/24/18 16:21 Dose: 5 mg Oxycodone HCl (Roxycodone Tab*) 10 mg PO Q3H PRN PRN Reason: PAIN - SEVERE Last Admin: 02/25/18 07:53 Dose: 10 mg Pharmacy Profile Note (Coumadin Daily Reminder*) 1 note FOLLOW UP 1700 [facility] Last Admin: 02/24/18 16:23 Dose: 1 note Warfarin Sodium (Coumadin Tab(*)) 5 mg PO DAILY@1700 [facility]; Protocol Last Admin: 02/24/18 16:21 Dose: 5 mg Vital Signs 02/24/18 02/24/18 02/24/18 12:05 12:21 13:02 Temperature 98.1 F Pulse Rate 58 Respiratory 18 16 18 Rate Blood Pressure 126/69 (mmHg) O2 Sat by Pulse 100 Oximetry 02/24/18 02/24/18 02/24/18 13:09 13:10 15:30 Temperature Pulse Rate Respiratory 18 18 18 Rate Blood Pressure (mmHg) O2 Sat by Pulse Oximetry 02/24/18 02/24/18 02/24/18 15:31 15:32 15:49 Temperature 98.4 F Pulse Rate 65 Respiratory 18 20 Rate Blood Pressure 130/69 (mmHg) O2 Sat by Pulse 100 Oximetry 02/24/18 02/24/18 02/24/18 16:21 19:27 19:31 Temperature Pulse Rate Respiratory 18 17 17 Rate Blood Pressure (mmHg) O2 Sat by Pulse Oximetry 02/24/18 02/24/18 02/24/18 19:36 19:39 20:00 Temperature 98.4 F Pulse Rate 87 Respiratory 22 16 Rate Blood Pressure 139/75 (mmHg) O2 Sat by Pulse 100 Oximetry 02/24/18 02/24/18 02/24/18 20:52 20:53 20:56 Temperature Pulse Rate Respiratory 17 17 17 Rate Blood Pressure (mmHg) O2 Sat by Pulse Oximetry 02/24/18 02/24/18 02/24/18 22:39 23:33 23:34 Temperature 97.9 F Pulse Rate 73 Respiratory 20 16 16 Rate Blood Pressure 128/80 (mmHg) O2 Sat by Pulse 99 Oximetry 02/25/18 02/25/18 02/25/18 03:40 03:55 06:14 Temperature 98.1 F Pulse Rate 57 Respiratory 16 17 15 Rate Blood Pressure 110/60 (mmHg) O2 Sat by Pulse 100 Oximetry 02/25/18 07:53 Temperature Pulse Rate Respiratory 16 Rate Blood Pressure (mmHg) O2 Sat by Pulse Oximetry Oxygen Devices in Use Now: None Neurology Exam: General: Sitting up in bed, pleasant, family at the bedside HEENT: Normocephalic/atraumatic, sclera anicteric, mucous membranes moist Neck: Supple Chest: Clear to auscultation bilaterally Cardiovascular: Regular rate and rhythm without murmurs, rubs, gallops Abdomen: Soft, nontender/nondistended Extremities: No clubbing, cyanosis, or edema Neurological Findings: Awake, Alert, Oriented x3 Speech: fluent without dysarthria, repetition intact Cranial Nerve: PEERL, EOM intact, VFF, no nystagmus, face symmetric bilaterally , facial sensation intact, hearing intact to finger rub bilaterally, palate elevates symmetrically, tongue midline Motor: 5/5 throughout, proximal and distal extremities x4 tone/bulk normal Sensation: intact to LT/PP bilaterally upper and lower extremities Deep Tendon Reflex: 2+ symmetric in the upper/lower extremities Finger to nose, rapid alternating movements intact without tremor Gait: intact with good arm swing and stride Result Diagrams: 02/23/18 06:47 02/23/18 06:47 Additional Lab and Data: Lab Results 02/22/18 02/22/18 Range/Units 14:59 14:59 WBC 6.4 (3.5-10.8) 10^3/ul RBC 3.93 L (4.00-5.40) 10^6/ul Hgb 11.9 L (12.0-16.0) g/dl Hct 35 (35-47) % MCV 88 (80-97) fL MCH 30 (27-31) pg MCHC 35 (31-36) g/dl RDW 13 (10.5-15) % Plt Count 256 (150-450) 10^3/ul MPV 7.1 L (7.4-10.4) um3 Neut % (Auto) 63.1 (38-83) % Lymph % (Auto) 25.4 (25-47) % [place] % (Auto) 9.0 H (0-7) % Eos % (Auto) 2.1 (0-6) % Baso % (Auto) 0.4 (0-2) % Absolute Neuts (auto) 4.1 (1.5-7.7) 10^3/ul Absolute Lymphs (auto) 1.6 (1.0-4.8) 10^3/ul Absolute Monos (auto) 0.6 (0-0.8) 10^3/ul Absolute Eos (auto) 0.1 (0-0.6) 10^3/ul Absolute Basos (auto) 0 (0-0.2) 10^3/ul Absolute Nucleated RBC 0 10^3/ul Nucleated RBC % 0 Sodium 139 (135-145) mmol/L Potassium 4.0 (3.5-5.0) mmol/L Chloride 103 (101-111) mmol/L Carbon Dioxide 27 (22-32) mmol/L Anion Gap 9 (2-11) mmol/L BUN 6 (6-24) mg/dL Creatinine 0.61 (0.51-0.95) mg/dL Est GFR ( Amer) 149.8 (>60) Est GFR (Non-Af Amer) 123.8 (>60) BUN/Creatinine Ratio 9.8 (8-20) Glucose 90 (70-100) mg/dL Calcium 9.2 (8.6-10.3) mg/dL Total Bilirubin 0.50 (0.2-1.0) mg/dL AST 17 (13-39) U/L ALT 27 (7-52) U/L Alkaline Phosphatase 30 L (34-104) U/L Total Protein 6.7 (6.4-8.9) g/dL Albumin 3.8 (3.2-5.2) g/dL Globulin 2.9 (2-4) g/dL Albumin/Globulin Ratio 1.3 (1-3) ESR/CRP elevated Assessment/Plan Assessment: 22 year old with recent development of severe headaches, found to have venous sinus thrombosis now on Lovenox as bridge to Coumadin. --First dose of Coumadin yesterday. She will continue Lovenox SQ full strength as bridge to therapeutic Coumadin. She is to have her INR checked early next week and PCP will adjust dose. Target INR 2.5 --Pain much better controlled on Oxycodone and Tylenol. Will go home on this regimen --Hypercoagulable panel pending. Recent termination could also cause hypercoagulable state. Awaiting labs (send out) --Previous LP on 02.20 showed 6 WBC but likely reactive. Very low suspicion for infection in light of VST. --Inital Lyme test positive but awaiting reflex. No recent tick bites or rash. Suspicion that this is a false positive or indicative of past infection. I would not treat at this point. --Her family will call my office on Monday and I will arrange follow up with me one week later. I have instructed family and patient to return to ER with any new symptoms including worsening or new headache, worsening nausea/vomiting , vision changes, speech difficulty, focal neurologic signs/symptoms (numbness, tingling, weakness, facial droop). Her family will be staying with her for now. --I have advised that she take it easy and rest for the next several weeks until she sees me back. No strenuous exercise, no heavy lifting. She should avoid driving while on narcotics. She should sleep with the head of her bed 15 degrees. I will see her in about 10 days in my clinic for follow up. She will follow up with [facility] for INR.
[2018-02-25] MEDS: Lidocaine 2.5%/Prilocain 2.5%* 5 GM TUBE TOPICAL SCH (09:16)
[2018-02-25] MEDS: Enoxaparin(*) 80 MG/0.8 ML SYR SUBCUT SCH (09:49)
[2018-02-25] MEDS ORDERED: Ondansetron ODT TAB* 4 MG ONE (10:37)
[2018-02-25] MEDS: Ondansetron ODT TAB* 4 MG SL PRN ×2 (10:39→14:20)
--- NOTE | 2018-02-25 10:54 | PN ---
"Progress Note - Progress Note Date of Service: 02/25/18 Note: This report was requested by: Prakash Rivas | Reference #: [id number] Others' Prescriptions Patient Name: Poppy Quinones Date: 1995 Address: [address] [place], [place] [address] [address] Sex: Female Rx Written Rx Dispensed Drug Quantity Days Supply Prescriber Name 10/30/2017 10/31/2017 adderall xr 15 mg capsule 30 30 Norma Pang MD 10/30/2017 10/31/2017 dextroamp-amphetamine 5 mg tab 20 20 Norma Pang MD 09/27/2017 09/30/2017 dextroamp-amphetamine 5 mg tab 20 20 Norma Pang MD 09/27/2017 09/30/2017 adderall xr 15 mg capsule 30 30 Norma Pang MD 07/07/2017 07/11/2017 adderall xr 15 mg capsule 30 30 Norma Pang MD 07/07/2017 07/11/2017 dextroamp-amphetamine 5 mg tab 22 22 Norma Pang MD 06/19/2017 06/20/2017 adderall xr 15 mg capsule 18 18 Norma Pang MD 06/19/2017 06/20/2017 dextroamp-amphetamine 5 mg tab 12 12 Norma Pang MD 05/13/2017 05/15/2017 adderall xr 15 mg capsule 30 30 Norma Pang MD 03/17/2017 03/22/2017 dextroamp-amphetamine 5 mg tab 22 22 Norma Pang MD 03/17/2017 03/22/2017 adderall xr 15 mg capsule 30 30 Norma Pang MD Time spent on discharge 50 minutes."
--- NOTE | 2018-02-25 13:09 | DS ---
CC: Dr. Rivers; [facility] * DISCHARGE SUMMARY: DATE OF ADMISSION: 02/23/18 DATE OF DISCHARGE: 02/25/18 HOSPITAL COURSE: This 22-year-old woman presented with an intractable headache. The history is detailed in the admission note. She had about a 1- week history of worsening headache on arrival at the hospital. She had been in the emergency room 3 times, being admitted on the third time for this admission. Initially she had a CT scan of the sinuses which was negative. She had photophobia, possibly some nausea and vomiting, although she denied that later to me. Of note, she had termination of in November of this year. The patient was seen in consultation by Dr. Eugene. She had an MRI of the brain and MRI-V of the head. Venous MRI showed intracerebral left transverse venous sinus thrombosis. She was started on enoxaparin and on 02/24/18 was started on warfarin 5 mg daily, receiving 1 dose on 02/24/18. The patient did have some nausea, this may be related to the oxycodone that she had. She was constipated as well. She was advised to take 2 ounces of milk of magnesia and if that did not help, to take MiraLax to have a bowel movement. She could take from 1 to 4 scoops a day of MiraLax and could take 4 scoops initially at once to start having bowel movements. She was advised she would need to take a laxative every day while on oxycodone. She will follow up with Dr. Rivers as an outpatient. Hypercoagulability workup was sent on blood drawn before she started on anticoagulants. She will have an INR on 02/27/18 and 03/02/18 unless the INR on 02/27/18 suggests a different timing. The [facility] physicians will supervise that. FINAL DIAGNOSES: 1. Left transverse venous sinus thrombosis. 2. Psychiatric diagnosis. DISCHARGE MEDICATIONS: 1. Enoxaparin 70 mg subcu every 12 hours. 2. Lidocaine, Prilocaine cream to injection sites for 15 minutes before injection. 3. Oxycodone 5 mg 2 tablets every 3 hours p.r.n. 4. Warfarin 2.5 mg 2 tablets daily at 5 to 6 p.m. 5. Ondansetron ODT 4 mg sublingual every 6 hours p.r.n. 6. Amphetamine-dextroamphetamine XR 15 mg daily. 7. Amphetamine mixed salts 5 mg daily p.r.n. 8. Cetirizine 20 mg daily. 9. Metaxalone as prescribed. [id number]/[place] #: [id number] [facility]
[2018-02-25 13:32] VITALS: BP 121/67
[2018-02-27 17:51] LABS: Prothrombin 20210 Mutation Negative (Negative)
== END 2018-02-25 14:50 | disposition home or self-care (01) | DRG 93 ==
LOC: ED 13:10 → MED 19:05 → OBSVTOIN 02-23 13:30
PROVIDERS: ADMIT Internal Medicine; ATTEND Internal Medicine
DX: G08 Intracranial and intraspinal phlebitis and thrombophlebitis (principal); K90.0 Celiac disease; F90.9 Attention-deficit hyperactivity disorder, unspecified type; Z79.1 Long term (current) use of non-steroidal anti-inflammatories (NSAID); Z79.899 Other long term (current) drug therapy; Z88.8 Allergy status to other drugs, medicaments and biological substances; Z91.018 Allergy to other foods; Z81.1 Family history of alcohol abuse and dependence; Z80.0 Family history of malignant neoplasm of digestive organs
CPT/HCPCS: 36415; 70450; 70544; 70553; 80048; 80053; 81240; 81241; 83520; 85025; 85303; 85306; 85307; 85610; 85613; 85652; 85730; 86140; 86146; 86147; 86617; 86618; 99284; A9270-GY; A9579; J0780; J1200; J1650; J1885; J2270; J2930; J3475

== ENCOUNTER 2018-02-25 23:19 | Emergency (ER) | payer OTHER ==
--- NOTE | 2018-02-26 00:51 | ED ---
Neurological HPI - HPI Summary HPI Summary: Patient with history of discharge this a.m. for left venous sinus thrombosis complains of new onset left-sided facial numbness, possible right side mouth droop, increasing headache pain, N/V when sitting up starting around 9 PM this evening. Patient has been started on Lovenox 02/24/18 and transition to Coumadin. Denies fever, dysphasia, slurred speech, AMS, unilateral weakness in extremities, vision change, gait instability, cough, sore throat, CP, SOB, abdominal pain, change in urine or BM. - History of Current Complaint Chief Complaint: EDNeurologicalDeficit Stated Complaint: NUMBESS IN FACE Time Seen by Provider: 02/25/18 23:33 Hx Obtained From: Patient, Family/Technician Biological Health Onset/Duration: Sudden Onset Onset Severity: Mild Neurological Deficit Location: Facial Pain Intensity: 6 Pain Scale Used: 0-10 Numeric Alleviating: Position Change - Additional Pertinent History Primary Care Physician: DARREN - Allergy/Home Medications Allergies/Adverse Reactions: Allergies Allergy/AdvReac Type Severity Reaction Status Date / Time cefuroxime [From Ceftin] Allergy Difficulty Verified 02/25/18 23:25 Breathing gluten Allergy Rash Verified 02/25/18 23:25 PMH/Surg Hx/FS Hx/Imm Hx Endocrine/Hematology History: Reports: Other Endocrine/Hematological Disorders - celiacs disease Denies: Hx Anticoagulant Therapy, Hx Blood Disorders, Hx Bone Marrow Disease , Hx Diabetes Cardiovascular History: Denies: Hx Auto Implanted Cardiovert Defib, Hx Cardiac Arrest, Hx Hypertension, Hx Pacemaker/ICD Respiratory History: Denies: Hx Asthma, Hx Bronchopulmonary Dysplasia GI History: Denies: Hx Cirrhosis, Hx Crohn's Disease History: Denies: Hx Dialysis, Hx Renal Disease Sensory History: Denies: Hx Contacts or Glasses, Hx Hearing Aid Opthamlomology History: Denies: Hx Contacts or Glasses Neurological History: Denies: Hx Migraine Psychiatric History: Denies: Hx Anxiety, Hx Attention Deficit Hyperactivity Disorder, Hx Panic Disorder - Surgical History Surgery Procedure, Year, and Place: wisdom teeth Infectious Disease History: No Infectious Disease History: Denies: Traveled Outside the [place] in Last 30 Days - Family History Known Family History: Negative: Respiratory Disease, Seizure Disorder Family History: No FHx of migraines. - Social History Alcohol Use: Occasionally Hx Substance Use: No Substance Use Type: Reports: None Hx Tobacco Use: No Smoking Status (MU): Never Smoked Tobacco Review of Systems Constitutional: Negative Eyes: Negative ENT: Negative Cardiovascular: Negative Respiratory: Negative Gastrointestinal: Negative Genitourinary: Negative Musculoskeletal: Negative Skin: Negative Positive: Paresthesia, Numbness Psychological: Normal All Other Systems Reviewed And Are Negative: Yes Physical Exam - Summary Physical Exam Summary: EOM intact. PERRL. Possible new onset droop to right side mouth, parents unsure if that was present before or not. Numbness to left cheek versus right cheek. No speech deficits. Patient is alert and oriented, responds appropriately. No drift or focal deficits in bilateral extremities. Patient raises bilateral eyebrows. Tongue sticks out straight. Visual villatoro intact. Triage Information Reviewed: Yes Vital Signs On Initial Exam: Initial Vitals Temp Pulse Resp BP Pulse Ox 97.8 F 69 16 117/75 98 02/25/18 23:21 02/25/18 23:21 02/25/18 23:21 02/25/18 23:21 02/25/18 23:21 Vital Signs Reviewed: Yes Appearance: Positive: Well-Appearing Skin: Positive: Warm Head/Face: Positive: Normal Head/Face Inspection Eyes: Positive: Normal ENT: Positive: Normal ENT inspection Neck: Positive: Supple Respiratory/Lung Sounds: Positive: Clear to Auscultation Cardiovascular: Positive: Normal Abdomen Description: Positive: Nontender Musculoskeletal: Positive: Normal Neurological: Positive: Facial Droop - Possible new onset droop on right side mouth. Parents unsure if this droop has been present before or not. Patient able to move right side of mouth.. Negative: Slurred Speech, Dysphagia, Pronator Drift Present Psychiatric: Positive: Normal AVPU Assessment: Alert - Merry Coma Scale Best Eye Response: 4 - Spontaneous Best Motor Response: 6 - Obeys Commands Best Verbal Response: 5 - Oriented Coma Scale Total: 15 Diagnostics - Vital Signs Vital Signs Temp Pulse Resp BP Pulse Ox 02/26/18 00:00 16 02/25/18 23:42 63 99 02/25/18 23:41 140/89 02/25/18 23:21 97.8 F 69 16 117/75 98 - Laboratory Result Diagrams: 02/26/18 00:37 02/26/18 00:37 Lab Statement: Any lab studies that have been ordered have been reviewed, and results considered in the medical decision making process. - CT brain CT Interpretation: No Acute Changes CT Interpretation Completed By: Radiologist - EKG 1 EKG Rhythm: Sinus Bradycardia ST Segment: Non-Specific Ectopy: None EKG Interpretation: WNL Course/Dx - Course Course Of Treatment: Patient with history of discharge this a.m. for left venous sinus thrombosis complains of new onset left-sided facial numbness, possible right side mouth droop, increasing headache pain, N/V when sitting up starting around 9 PM this evening. Patient has been started on Lovenox 02/24/18 and transition to Coumadin. Denies fever, dysphasia, slurred speech, AMS, unilateral weakness in extremities, vision change, gait instability, cough, sore throat, CP, SOB, abdominal pain, change in urine or BM. EOM intact. PERRL. Possible new onset droop to right side mouth, parents unsure if that was present before or not. Numbness to left cheek versus right cheek. No speech deficits. Patient is alert and oriented, responds appropriately. No drift or focal deficits in bilateral extremities. Patient raises bilateral eyebrows. Tongue sticks out straight. Visual villatoro intact. Discussed patient with neurologist Dr. Rivers, and Dr. England. Murillo's palsy versus symptoms related to left venous sinus thrombosis. CT brain negative for bleed. - Diagnoses Provider Diagnoses: Murillo's palsy Discharge - Sign-Out/Discharge Documenting (check all that apply): Sign-Out Patient Signing out patient TO: Armida England - Discharge Plan Referrals: Collette Rivera MD [Primary Care Provider] -
[2018-02-26 01:12] LABS: ABS Basophils 0.1 10^3/ul (0-0.2); ABS Eosinophils 0.1 10^3/ul (0-0.6); ABS Lymphocytes 2.1 10^3/ul (1.0-4.8); ABS Monocytes 0.8 10^3/ul (0-0.8); ABS Neutrophils 6.8 10^3/ul (1.5-7.7); ABS Nucleated RBC 0 10^3/ul; Eosinophil % 1.5 % (0-6); Hematocrit 37 % (35-47); Hemoglobin 12.7 g/dl (12.0-16.0); Lymphocyte % 20.7 % (25-47); Mean Corpuscular HGB Conc 35 g/dl (31-36); Mean Corpuscular Hemoglobin 30 pg (27-31); Mean Corpuscular Volume 88 fL (80-97); Nucleated Red Blood Cells % 0; Platelet Count 381 10^3/ul (150-450); Red Blood Count 4.22 10^6/ul (4.00-5.40); Red Cell Distribution Width 13 % (10.5-15); White Blood Count 9.9 10^3/ul (3.5-10.8)
[2018-02-26] MEDS ORDERED: cefTRIAXone(*) 2 GM in NS 0.9% 100 ML* 100 ML IVPB ONE (01:16)
[2018-02-26 01:21] LABS: INR 1.17 (0.77-1.02)
[2018-02-26 01:34] LABS: EGFR Non-African American 113.1 (>60)
[2018-02-26] MEDS ORDERED: ValACYclovir (*) 1 GM TAB PO ONE (01:54)
[2018-02-26] MEDS ORDERED: DOXYcycline CAP(*) 100 MG PO ONE (04:12)
[2018-02-26] MEDS ORDERED: predniSONE TAB* 20 MG PO ONE (04:12)
[2018-02-26 04:51] VITALS: BP 127/71
--- NOTE | 2018-02-26 04:52 | ED ---
Vandana Contreras Emily, scribed for Armida England MD on 02/26/18 at 0023 . Progress - Progress Note Progress Note: This patient is a 22 year old F presenting to [facility] accompanied by parents with a chief complaint left sided facial numbness began CAR PACKER. The patient reports that she has a LEI that began 10 days ago, and ended up with a diagnosis of venous sinus thrombosis. The patient rates the pain 6/10 in severity. Symptoms aggravated by nothing. Symptoms alleviated by nothing. Patient reports fever ( occurred 5 days ago, resolved), nausea, and changes in taste. Parents report that the patients Lyme test came back preliminary positive. Physical exam showed left side Murillo's palsy, rest of neurologic exam is unremarkable. - Results/Orders Results/Orders: Brain MR reveals, per radiologist, normal exam. ED physician has reviewed this radiology report. MRA head reveals, per radiologist, no evidence of arterial pathology in the brain. ED physician has reviewed this radiology report. MRV head reveals, per radiologist, no evidence of deep vein thrombosis. ED physician has reviewed this radiology report. Course/Dx - Course Course Of Treatment: This patient is a 22 year old F presenting to [facility] accompanied by parents with a chief complaint left sided facial numbness began CAR PACKER. The patient reports that she has a LEI that began 10 days ago, and ended up with a diagnosis of venous sinus thrombosis. Parents report that the patient tested positive for Lyme's disease. Physical exam showed left side Murillo's palsy. MRI, MRA, and MRV were negative. Consult with Dr. Rivers (neurology) at 0405. He recommends patient be discharged, and he will follow up with the patient on 02/27/2018. The patient will be discharged home with follow up with Dr. Rivers. The patient is agreeable with this plan. - Diagnoses Provider Diagnoses: Murillo's palsy, Lyme disease - Provider Notifications Discussed Care Of Patient With: Katherine Rivers Time Discussed With Above Provider: 04:05 Instructed by Provider To: Other - Consult with Dr. Rivers (neurology) at 0405. He recommends patient be discharged, and he will follow up with the patient on . Discharge - Sign-Out/Discharge Documenting (check all that apply): Discharge/Admit/Transfer - Discharge home, Receiving Sign-Out Receiving patient FROM: Stephen Read - upon shift change pending MRI results - Discharge Plan Condition: Stable Disposition: HOME Prescriptions: DOXYcycline CAP(*) [DOXYcycline 100MG CAP(*)] 100 mg PO BID #42 cap predniSONE TAB* [Deltasone 20 MG TAB*] 60 mg PO DAILY #18 tab ValACYclovir (*) [Valtrex 1 GM(*)] 1 gm PO TID #20 tab Patient Education Materials: Lyme Disease (ED), Murillo Palsy (ED) Referrals: Collette Rivera MD [Primary Care Provider] - 3 Days Katherine Rivers MD [Medical Doctor] - 1 Day (Call his office to schedule a follow up for 02/27/2018.) Additional Instructions: RETURN TO THE EMERGENCY DEPARTMENT FOR NEW OR WORSENING SYMPTOMS. - Billing Disposition and Condition Condition: STABLE Disposition: Home The documentation as recorded by the Vandana salgado Emily accurately reflects the service I personally performed and the decisions made by , Armida England MD.
--- NOTE | 2018-02-26 04:59 | CONS ---
CC: [facility] * CONSULTATION REPORT: DATE OF CONSULT: 02/26/18 - EMERGENCY DEPT PRIMARY CARE PROVIDER: [facility]. REASON FOR CONSULTATION AND ADMISSION: Transverse sinus thrombosis with new neurologic signs and symptoms. Please see the discharge summary dated today for a full recount of her recent hospitalization. HISTORY OF PRESENT ILLNESS: Briefly, Ms. Quinones is a 22-year-old female with a history of celiac disease. She had a recent termination in the first trimester earlier this year, was apparently treated for mono. She has had a complicated medical course over the last week. She first developed headaches on or around of this month. She came to the emergency room several times. She also went to her urgent care. Initially, it was felt that this could be related to sinuses. She had a CT of the sinus that showed no acute disease. She was initially sent home on muscle relaxants, but came back the next day with similar headaches that were global in nature, but at times, frontal; at times, occipital. She was given pain medication again and discharged home only to return in 2 days later with worsening headache associated with nausea, vomiting, and photophobia. The headache at that time was noted to be frontal. She was having some difficulty focusing with her eyes. She was not on any hormone replacement therapy at the time of contraceptive pills. She also notes some low-grade fevers at home, at around that time, T max of 100.6. Denied any recent sick contacts or travelling. She denied any tick bites, animal bites, rashes, or arthralgias. She came back to the ER on 02/22/18, had a CT scan at that time that showed no acute issues. She had lab work done on and and on the with a normal white count , normal hemoglobin and hematocrit. She had an elevated CRP, initially 56, HIV that was nonreactive. She did have a lumbar puncture, which show showed 6 whites and it was thought that she had a probable viral meningitis. Subsequently, she did have an MRI and an MRV. The MRI showed no acute changes, but the MRV did show left transverse sinus thrombosis. It was at that point that she was put on Lovenox initially and then started on Coumadin several days later. She continued to have significant headaches, at times 10/10 with nausea. We treated her conservatively with head of the bed at 15 degrees, gave her a variety of pain medications and finally she had some good pain relief with Tylenol and oxycodone. She actually improved enough that she went home today in good condition, nonfocal exam except for some headaches. When she got home at around 7 tonight, she developed a significant headache that had been worsening throughout the day. She noted nausea and she vomited anytime she sat up and she also noted weakness in the left face. Her mother notes that she had difficulty closing her left eye. They felt that her left face was drooping and she had less wrinkle on her left forehead. It should be noted that during her hospitalization, a hypercoagulable panel was sent, but is pending. Also initial Lyme serology came back positive, but Western blot is pending. Again, she denies any recent insect bites, rashes, or arthralgias. Tonight in the ER, she had an initial CT scan of the brain that showed no acute changes. I did speak with [facility] about her condition given the fact that she has known transverse sinus thrombosis with new neurologic findings suggestive of a Murillo's palsy, but I did explain to the family that this could be related to the underlying venous thrombosis as there are at times focal neurologic findings associated with this condition. [facility] recommended a repeat MRV to look for any propagation for the clot as well as an MRI to rule out any strokes. She currently rates her headache a 7/10 to 8/10 with nausea, vomiting, and photophobia. PAST MEDICAL HISTORY: As noted above. She has celiac disease, mono. Denies any other medical problems. PAST SURGICAL HISTORY: Includes wisdom teeth and termination of her in November of this year. HOME MEDICATIONS: This is prior to her discharge today. 1. Amphetamine 5 mg p.o. daily. 2. Adderall XR 15 mg mg p.o. daily. 3. Zyrtec 20 mg daily. 4. Skelaxin 800 mg p.o. t.i.d. given for the headaches. On discharge from the hospital today, she was sent home on: 1. Lovenox 70 mg subcutaneous every 12 hours. 2. Lidocaine cream at the injection site. 3. Oxycodone 5 mg 2 tablets every 3 hours p.r.n. 4. She had been started on warfarin 5 mg daily at 5. 5. Zofran 4 mg sublingual every 6 hours p.r.n. 6. She was restarted on her amphetamine XR 15 mg daily and amphetamine mixed salts 5 mg daily. 7. Cetirizine. 8. Metaxalone. 9. She was also told that she could have Tylenol as well. ALLERGIES: GLUTEN and CEFUROXIME. FAMILY HISTORY: Noncontributory. 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 No tobacco use. Occasional alcohol use. Her parents are now in from [place]. She has a summer job planned here in [place]. REVIEW OF SYSTEMS: Review of systems in 14 organ systems as noted above, otherwise negative. PHYSICAL EXAMINATION: Vital Signs: Blood pressure 141/83 to 123/70 to 132/68, respiratory rate 13 to 18, heart rate of 59 to 77, O2 sat of 98% on room air. In general, she is a well-nourished, well-developed young female, lying on the [facility], her head is at approximately 30 degrees. She does some photophobia, appears to be in mild to moderate pain, but is pleasant and answers all questions appropriately. She is well dressed, well groomed. HEENT : She is normocephalic/atraumatic. She has some conjunctival injection. Sclerae are otherwise normal. Mucous membranes are moist. Oropharynx is clear. Nares are patent. She has good dentition. Neck: She has some mild stiffness. No carotid bruits. Chest: Clear to auscultation bilaterally. Cardiovascular: Regular rate and rhythm. Abdomen is nontender, nondistended. Extremities: There is no clubbing, cyanosis, or edema. Skin is warm and dry without lesions or rashes. On neurologic exam, she is awake, alert, oriented x3. Her speech is fluent. There is no dysarthria. No aphasia. Repetition is intact. Recall of recent and remote events is intact. Her mood is anxious. Cranial nerves, pupils are equal, round, and reactive to light and accommodation. Extraocular muscles are intact with no diplopia or nystagmus. Facial sensation, she notes some paresthesias in the left cheek area and occasionally at the right corner of her lip. Her face has a droop in the upper and lower face with less wrinkle in the forehead and a weak smile. She has Murillo' s phenomenon where she tries to close her eyes on the left. Tongue is midline. Palate raises symmetrically. Motor Exam: She spontaneously moves all extremities antigravity, 5/5 throughout. Tone is normal. DTRs are 2+ and symmetric in the upper and lower extremities. Equivocal Babinski's. Finger-to - nose, rapid alternating movements are intact without dysdiadochokinesia. Sensation is intact to light touch and pinprick in the arms and legs. Gait was not tested at this time as she does get nauseated and vomits when she stands up. LABORATORY DATA/DIAGNOSTIC STUDIES: Lab work today is pending. CT of the head, as noted above, no acute changes. ASSESSMENT AND PLAN: Ms. Quinones is a 22-year-old female with a known history of left transverse sinus thrombosis diagnosed several days ago, currently on Lovenox and Coumadin with a plan to bridge with Lovenox until she is therapeutic on the Coumadin. Has had intermittent headaches, which on discharge today were under better control with oxycodone and Tylenol, but when she went home, she had worsening of her headaches with nausea, vomiting and developed what appears to be a Murillo's palsy with upper and lower facial weakness on the left. She did have a positive initial Lyme test, but Western blot is pending. At this point, I cannot rule out that these symptoms could be related to her underlying venous sinus thrombosis. The sinus thrombosis can be associated with focal neurologic signs and symptoms. She has had no seizures reported. With her positive Lyme test, her history of low-grade fevers in the past, Lyme is certainly within the differential, although it would not explain her sinus thrombosis. It is possible that she could have developed 2 things at around the same time. In the ER, she will receive ceftriaxone for suspected Lyme. I am also going to start her on valacyclovir given the acute nature of her symptoms. No steroids given the fact that this could worsen her hypercoagulable state. Again, I spoke with [facility]. The plan is to get an MRV, MRA, and MRI tonight. If there is evidence of propagation of the blood clot or evidence of any new stroke or changes on her MRI, then she will be transferred to [facility] later this morning. If her clot looked stable and her MRI of the brain and MRA of the brain are both normal, then I do think it is safe to admit her here for observation with the assumption that she is likely suffering from a Murillo's palsy on top of the venous sinus thrombosis. This could be treated conservatively. As far as her venous sinus thrombosis, she is on Lovenox and Coumadin. She will continue her Coumadin 5 mg a day with a plan to check her INR in several days. Once it is in the 2.5 range, we can stop the Lovenox. A hypercoagulable panel was sent, but the results are not back. Disposition is pending further studies. Thank you for the opportunity to participate in her care. [id number]/[facility] #: [id number] CURT
--- NOTE | 2018-02-26 07:38 | RAD ---
INDICATION: Sinus thrombosis. Headaches COMPARISON: CT brain February 24, 2018 TECHNIQUE: Noncontrast axial source images were acquired from the skull base to the vertex. FINDINGS: Ventricles/sulci: The ventricles and cisterns are normal in size and configuration for age. Brain parenchyma: There is no focal parenchymal finding, evidence of intracranial mass, or intracranial mass effect. Intracranial hemorrhage:None. Extra-axial spaces: There are no abnormal extra axial fluid collections or evidence of extra-axial mass. Calvarium: There is no calvarial fracture or other calvarial abnormality. Scalp: There is no evidence of scalp or extracalvarial soft tissue abnormality. Paranasal sinuses/mastoid: The paranasal sinuses and mastoid air cells are clear. Other: None. IMPRESSION: NEGATIVE EXAMINATION
--- NOTE | 2018-02-26 07:39 | RAD ---
INDICATION: Neurologic change. Code sandoval COMPARISON: None TECHNIQUE: An AP portable view obtained at 0040 hours is submitted. FINDINGS: Bones/Soft Tissues: There are no acute bony findings. Cardiomediastinal: The cardiomediastinal silhouette is normal. Lungs: There are no infiltrates. Pleura: There are no pleural effusions. Other: None IMPRESSION: NORMAL CHEST.
--- NOTE | 2018-02-26 07:50 | RAD ---
Indication: Question left-sided venous thrombosis. MRV of the brain was performed utilizing 3-D [id number] technique. Sagittal and coronal reconstructed images were obtained. The sagittal sinus, straight sinus and right transverse sinus all widely patent. A small left transverse sinus is noted. There appears to be recanalization of the left transverse sinus. There is now flow detected which was not present previously. IMPRESSION: Recanalization of the left transverse sinus when compared to previous exam of February 23, 2018.
--- NOTE | 2018-02-26 07:52 | RAD ---
Indication: Stroke, left-sided venous thrombosis. MRA of the brain was performed utilizing 3-D [id number] technique. Multiple maximum intensity projection images of the brain were obtained. The intracranial carotid arteries demonstrates no significant stenosis. There is an absent A1 segment of the right anterior cerebral artery. The middle cerebral artery and anterior cerebral arteries are otherwise unremarkable. Patent anterior communicating artery is noted. Vertebral artery, basilar artery and posterior cerebral artery is intact. There is no evidence of aneurysmal dilatation or branch occlusion noted. 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 Otherwise no evidence of aneurysmal dilatation or branch occlusion is noted. .
--- NOTE | 2018-02-26 09:43 | RAD ---
Indication: Stroke, continued left-sided numbness and thrombosis of the transverse sinus. Image Sequences: Sagittal and axial T1, axial T2, FLAIR, diffusion and susceptibility weighted images of the brain were obtained. Ventricular structures are midline. No midline shift is noted. The extra-axial spaces are unremarkable. There is no evidence of intracranial mass or hemorrhage. No restriction of diffusion is noted. Susceptibility weighted images demonstrate no evidence of susceptibility artifact. Paranasal sinuses and mastoid air cells are unremarkable. IMPRESSION: No restriction of diffusion is noted. No evidence of acute abnormality is noted. No significant change is noted since February 23, 2018.
[2018-02-26] MEDS ORDERED: ValACYclovir (*) 1 GM TAB PO SCH (21:00)
== END 2018-02-26 04:49 | disposition home or self-care (01) ==
LOC: ED 23:19
DX: G51.0 Bell's palsy (principal); A69.20 Lyme disease, unspecified; R51 Headache
CPT/HCPCS: 36415; 70450; 70544; 70551; 71045; 80053; 80061; 83605; 84484; 85025; 85610; 85730; 86140; 86850; 86900; 86901; 93005; 96365; 99284; A9270-GY; J0696; J7512